=== PATIENT | male | born 1980 | race Two or more races ===

== ENCOUNTER 2019-03-15 17:40 | Emergency (ER) | payer MEDICAID, OTHER ==
[~2019-03-15] VITALS: Ht 190.5 cm; Wt 99.8 kg
[2019-03-15] MEDS ORDERED: IBUPROFEN 800 MG TAB PO ONE (20:30)
[2019-03-15 21:35] VITALS: BP 122/74
== END 2019-03-15 21:59 | disposition home or self-care (01) ==
LOC: ER 18:02
DX: M79.641 Pain in right hand (principal); M72.2 Plantar fascial fibromatosis; I10 Essential (primary) hypertension; X58.XXXA Exposure to other specified factors, initial encounter; Y93.89 Activity, other specified; Y99.8 Other external cause status; Y92.89 Other specified places as the place of occurrence of the external cause
CPT/HCPCS: 73130; 73630

== ENCOUNTER 2023-08-29 06:16 | Emergency (ER) | payer MEDICAID ==
[~2023-08-29] VITALS: Ht 190.5 cm; Wt 102.4 kg
[2023-08-29 07:48] VITALS: BP 143/89; PULSE 74; RESP 18; TEMP 97.6; O2SAT 98
[2023-08-29] MEDS: KETOROLAC TROMETH 60MG/2ML VIAL IM ONE (08:07)
[2023-08-29] MEDS ORDERED: BACL10TA PO (08:15)
[2023-08-29] MEDS ORDERED: IBUP-1456 PO (08:15)
== END 2023-08-29 08:23 | disposition home or self-care (01) ==
LOC: ER 06:16
DX: S46.002A Unspecified injury of muscle(s) and tendon(s) of the rotator cuff of left shoulder, initial encounter (principal); I10 Essential (primary) hypertension; W18.09XA Striking against other object with subsequent fall, initial encounter; Y93.89 Activity, other specified; Y92.89 Other specified places as the place of occurrence of the external cause; Y99.8 Other external cause status
CPT/HCPCS: 73030; 96372; 99283; J1885

== ENCOUNTER 2024-08-20 17:02 | Inpatient (IN) | payer MEDICAID, OTHER, SELFPAY ==
[~2024-08-20] VITALS: Ht 190.5 cm; Wt 111.5 kg
[~2024-08-20 17:02] MED LIST: BACL10TA PO; IBUP-1456 PO
--- NOTE | 2024-08-20 17:17 | ED.PDOC ---
HPI Comments 43 y/o obese M presents with c/o sudden onset of left-sided chest pain, that radiates to his right arm. Onset of symptoms at 11:00 a.m. this morning. Pain is constant. No alleviating or precipitating factors. Patient states States that he quit cigarette tobacco use 2 months ago. Denies any shortness of breath, nausea, vomiting, or other associated symptoms. This never happened before. Vitals: temperature: Past medical history: PNA Past surgical history: urethral procedure, carpal tunnel surgery HPI: Poor Historian. REVIEW OF SYSTEMS: CONSTITUTIONAL: Denies acute: fever, diaphoresis, chills, generalized weakness. HEAD: Denies acute: headache, photophobia Eyes: Denies acute: Double vision, vision loss, eye pain, eye discharge. EARS: Denies acute: tinnitus, hearing loss, ear discharge, ear pain, THROAT: Denies acute: sore throat, swelling, difficulty swallowing , pain with swallowing, change in voice. NECK: Denies acute: neck pain, neck swelling, stiff neck. HEART: Denies acute : palpitations, LUNGS: Denies acute: SOB, wheezing, cough, hemoptysis ABDOMEN: Denies acute: abdominal pain, Nausea, Vomiting, diarrhea, melena , hematemesis, hematochezia SKIN: Denies acute: rash, redness, lesions, itchiness. EXTREMITIES: Denies acute: calf pain, numbness, tingling, weakness, denies pain in extremity. Denies acute: Low back pain. Neuro: Denies acute: focal neurological deficit, motor or sensory focal neurological deficit, tremors, seizure like activity, confusion, dizziness, change in mental status, loss of bowel or bladder function, cauda equina like symptoms. : Denies acute: dysuria, hematuria, flank pain, increase in urinary frequency. PSYCH: Denies acute: hallucination, suicidal ideation, homicidal ideation. PHYSICAL EXAM: General: -----moderate to severe---acute distress, awake and alert. Head: normocephalic, atraumatic. Neck: supple, trachea is midline, no swelling. Throat: Normal phonation. Eyes:, no erythema, no purulent discharge, no proptosis, no icterus. Heart: regular tachycardic, no significant murmur appreciated. Lungs: no apparent respiratory distress, Able to speak in full sentences. No wheezing, no rhonchi, no crackles. No stridors Clear to auscultation bilaterally. Abdomen: non tender to palpation, non distended, soft, no guarding, no rebound, + bowel sounds. Neuro: Awake, Alert, oriented to name, self, situation, follows commands GCS=15. Speech is normal. Skin: no petechia, no purpura, no cyanosis, non-pale, not jaundice. Lower extremities: --no - Pitting edema no deformity, no focal swelling, no calf TTP. Makes eye contact. moves all four extremities. Face: no apparent facial droop. Ambulating in the ED independently. ED COURSE: Time Seen by MD: 17:00 Primary Care Provider: JANELLE Jose Notes: Nurses Notes, Medications, Allergies Allergies: Coded Allergies: NO KNOWN ALLERGIES (Unverified , 03/15/19) Home Meds Active Scripts Baclofen (Baclofen) 10 Mg Tab, 10 MG PO BID, #20 TAB Prov:TINO CORREA 08/29/23 Ibuprofen (Ibuprofen) 800 Mg Tab, 1 TAB PO TID, #30 TAB Prov:TINO CORREA 08/29/23 Information Source: Patient Mode of Arrival: Ambulatory Past Medical History PAST MEDICAL HISTORY: Anxiety, HTN Surgical History: Denies all surgeries Family History Family History: Reviewed,noncontributory to illness Social History Smoker: Non-Smoker Alcohol: Denies ETOH Use Drugs: Denies Drug Use Lives In: Home EKG EKG : Pulse Rate (adult): 106 [place]: Normal Cardiac Rhythm: ST Block: None Hypertrophy: None ST: Normal Was a procedure done? Was a procedure done?: No X-Ray, Labs, Meds, VS Vital Signs Date Time Temp Pulse Resp B/P (MAP) Pulse Ox O2 Delivery O2 Flow Rate FiO2 08/20/24 19:53 132/75 08/20/24 19:37 108 20 95 Room Air* 0 21 08/20/24 19:36 98.2 108 20 132/75 (94) 95 98.2 08/20/24 18:23 112/60 08/20/24 18:04 105 08/20/24 17:58 98.0 103 18 110/70 (83) 98 98.0 08/20/24 17:58 103 18 98 Room Air* 0 21 08/20/24 17:43 110/70 08/20/24 17:17 106 08/20/24 17:08 106 08/20/24 17:03 98.8 108 18 111/75 (87) 94 98.8 Lab Test 08/20/24 20:08 08/20/24 18:21 08/20/24 18:09 08/20/24 17:15 Range/Units Troponin I High Sensitivity Pending 8 10 </=54 ng/L Sodium Level 140 139 136-145 mmol/L Potassium Level 4.1 3.9 3.5-5.1 mmol/L Chloride Level 106 106 98-107 mmol/L Carbon Dioxide Level 21 23 20-31 mmol/L Anion Gap 13 10 5-15 Blood Urea Nitrogen 18 15 9-23 mg/dL Creatinine 1.55 H 1.54 H 0.700-1.30 mg/dL Glomerular Filtration Rate Calc 57 58 >90 mL/min BUN/Creatinine Ratio 11.6 9.7 L 10.0-20.0 Serum Glucose 109 H 109 H 74-106 mg/dL Calcium Level 10.2 10.2 8.7-10.4 mg/dL Urine Color Yellow Yellow Urine Clarity Clear Clear Urine pH 6.5 5.0-9.0 Urine Specific [place] 1.027 1.001-1.035 Urine Protein Trace H Negative Urine Ketones Negative Negative Urine Blood Negative Negative /uL Urine Nitrite Negative Negative Urine Bilirubin Negative Negative Urine Urobilinogen Normal Negative mg/dL Urine Leukocyte Esterase 1+ Negative /uL Urine RBC 3 0 - 3 /hpf Urine Microscopic WBC 21 H 0-3 /HPF Urine Squamous Epithelial Cells Few <5 /hpf Urine Bacteria None seen None Seen /hpf Urine Mucus Few None Seen Urine Glucose Normal Normal mg/dL Urine Opiates Screen Neg NEGATIVE Urine Fentanyl Screen Neg NEGATIVE Urine Barbiturates Screen Neg NEGATIVE Urine Phencyclidine Screen Neg NEGATIVE Urine Amphetamines Screen Neg NEGATIVE Urine Benzodiazepines Screen Neg NEGATIVE Urine Cocaine Screen Neg NEGATIVE Urine Cannabinoids Screen Neg NEGATIVE White Blood Count 16.4 H 4.4-10.8 10^3/uL Red Blood Count 5.54 4.5-5.90 10^6/uL Hemoglobin 17.6 H 13.5-17.5 g/dL Hematocrit 49.8 41.0-53.0 % Mean Corpuscular Volume 90.0 80.0-100.0 fL Mean Corpuscular Hemoglobin 31.7 28.0-32.0 pg Mean Corpuscular Hemoglobin Concent 35.2 32.0-36.0 g/dL Red Cell Distribution Width 13.1 11.8-14.3 % Platelet Count 207 140-450 10^3/uL Mean Platelet Volume 7.7 6.9-10.8 fL Neutrophils (%) (Auto) 73.4 37.0-80.0 % Lymphocytes (%) (Auto) 16.6 10.0-50.0 % Monocytes (%) (Auto) 7.6 0.0-12.0 % Eosinophils (%) (Auto) 1.7 0.0-7.0 % Basophils (%) (Auto) 0.7 0.0-2.0 % Neutrophils # (Auto) 12.1 H 1.6-8.6 10 ^3/uL Lymphocytes # (Auto) 2.7 0.4-5.4 10 ^3/uL Monocytes # (Auto) 1.3 0-1.3 10 ^3/uL Eosinophils # (Auto) 0.3 0-0.8 10 ^3/uL Basophils # (Auto) 0.1 0-0.2 10 ^3/uL Nucleated Red Blood Cells 0.2 % Erythrocyte Sedimentation Rate 1 0-20 mm/hr D-Dimer, Quantitative 0.24 0.0-0.49 mg/L FEU Lactic Acid Level 1.6 0.4-2.0 mmol/L Total Bilirubin 1.2 H 0.2-1.0 mg/dL Aspartate Amino Transferase (AST) 26 13-40 U/L Alanine Aminotransferase (ALT) 55 H 7-40 U/L Alkaline Phosphatase 74 46-116 U/L C-Reactive Protein High Sensitivity 0.25 <1.0 mg/dL B-Type Natriuretic Peptide 2.17 0-100 pg/mL Total Protein 7.6 5.7-8.2 g/dL Albumin 5.0 H 3.2-4.8 g/dL Current Medications Medications (Trade) Dose Ordered Sig/Adan Route Start Time Stop Time Status Last Admin Aspirin (Ecotrin Enteric Coated Tablet) 325 mg ONCE ONCE PO 08/20/24 17:15 08/20/24 17:16 DC 08/20/24 17:38 Sodium Chloride 1,000 ml @ 1,000 mls/hr Q1H ONCE IV 08/20/24 17:15 08/20/24 18:14 DC 08/20/24 17:44 Nitroglycerin (Ntrostat Sublingual) 0.4 mg ONCE ONCE SL 08/20/24 17:15 08/20/24 17:16 DC 08/20/24 17:43 Ceftriaxone Sodium 50 ml @ 100 mls/hr ONCE ONCE IV 08/20/24 18:00 08/20/24 18:29 DC 08/20/24 19:52 Fentanyl Citrate 100 mcg ONCE ONCE IV 08/20/24 19:30 08/20/24 19:31 DC 08/20/24 19:53 [place] [id number] Ph: [phone] DIAGNOSTIC IMAGING Diagnostic Imaging Report : [id number] Signed PATIENT: KAILYN ROSALES ACCT: [id number] UNIT: [id number] : 1980 LOC: ER ROOM / BED: / AGE / SEX: 43 / M ADM STATUS: REG ER SERVICE 1706 ORDERING PHYSICIAN: BEBETO LEHMAN DO PROCEDURE(s): CXRP - CHEST PORTABLE REASON: cp ORDER NUMBER(s): [id number], ACCESSION NUMBER(s): [id number] EXAMINATION: AP portable chest radiograph CLINICAL HISTORY: cp COMPARISON: None FINDINGS: No dominant consolidations. The costophrenic angles appear clear. No sizable pleural effusion or pneumothorax identified. The cardiomediastinal silhouette appears within normal limits given technique. IMPRESSION: No acute cardiopulmonary findings as visualized. ATED BY: CYRUS LEMUS MD DICTATED DATE/TIME: 08/20/241823 SIGNED BY: CYRUS LEMUS MD SIGNED DATE/TIME: 08/20/241823 CC: Time of 1ST Reevaluation: 17:00 Reevaluation 1ST: Unchanged Patient Education/Counseling: Diagnosis, Treatment Family Education/Counseling: No Family Present Departure 1 Departure Time of Disposition: 18:41 Impression: Primary Impression: Chest pain Additional Impression: Leukocytosis Disposition: 09 ADMITTED INPATIENT Admit to: Tele Condition: Guarded Discharged With: Self Critical Care Note Critical Care Time?: No Heart Score Heart Score: Heart Score Response (Comments) Value History Moderate Suspicious 1 EKG Normal 0 Age <45 0 Risk Factors 1 or 2 risk factors 1 Troponin Normal limit 0 Total 2 I personally scribed for BEBETO LEHMAN DO ([email or web address]) on 08/20/24 at 17:17. Electronically submitted by Mak Mast ([email or web address]). I personally scribed for BEBETO LEHMAN DO ([email or web address]) on 08/20/24 at 18:36. Electronically submitted by Mak Mast ([email or web address]). I personally scribed for BEBETO LEHMAN DO ([email or web address]) on 08/20/24 at 20:47. Electronically submitted by Mak Mast ([email or web address]). BEBETO LEHMAN DO Aug 20, 2024 17:17
[2024-08-20 17:34] LABS: Basophils # (auto) 0.1 10 ^3/uL (0-0.2); Basophils % (auto) 0.7 % (0.0-2.0); Eosinophils # (auto) 0.3 10 ^3/uL (0-0.8); Eosinophils % (auto) 1.7 % (0.0-7.0); Hematocrit 49.8 % (41.0-53.0); Hemoglobin 17.6 g/dL (13.5-17.5); Lymphocytes # (auto) 2.7 10 ^3/uL (0.4-5.4); Lymphocytes % (auto) 16.6 % (10.0-50.0); Mean Corpuscular Hemoglobin 31.7 pg (28.0-32.0); Mean Corpuscular Hgb Conc. 35.2 g/dL (32.0-36.0); Monocytes # (auto) 1.3 10 ^3/uL (0-1.3); Monocytes % (auto) 7.6 % (0.0-12.0); Neutrophils # (auto) 12.1 10 ^3/uL (1.6-8.6); Neutrophils % (auto) 73.4 % (37.0-80.0); Nucleated Red Blood Cells % 0.2 %; Platelet Count (auto) 207 10^3/uL (140-450); Red Blood Cells 5.54 10^6/uL (4.5-5.90); Red Cell Distribution Width 13.1 % (11.8-14.3); White Blood Cell 16.4 10^3/uL (4.4-10.8)
[2024-08-20] MEDS: ASPirin-EC 325mg tab PO ONE (17:38)
[2024-08-20] MEDS: NITROGLYCERIN 0.4 MG SL TAB SL ONE (17:43)
[2024-08-20] MEDS: SODIUM CHLORIDE 0.9% 1,000 ML IV ONE (17:44)
[2024-08-20 17:48] LABS: Alkaline Phosphatase 74 U/L (46-116); Anion Gap 10 (5-15); Aspartate Aminotransferase 26 U/L (13-40); BUN/Creatinine Ratio 9.7 (10.0-20.0); Blood Urea Nitrogen 15 mg/dL (9-23); Calcium 10.2 mg/dL (8.7-10.4); Carbon Dioxide 23 mmol/L (20-31); Chloride 106 mmol/L (98-107); Potassium 3.9 mmol/L (3.5-5.1); Sodium 139 mmol/L (136-145); Total Protein 7.6 g/dL (5.7-8.2)
[2024-08-20 17:49] LABS: Alanine Aminotransferase 55 U/L (7-40); Bilirubin, Total 1.2 mg/dL (0.2-1.0); Glucose 109 mg/dL (74-106)
[2024-08-20 17:58] VITALS: PULSE 103; RESP 18; O2SAT 98
--- NOTE | 2024-08-20 18:26 | DVH ---
EXAMINATION: AP portable chest radiograph CLINICAL HISTORY: cp COMPARISON: None FINDINGS: No dominant consolidations. The costophrenic angles appear clear. No sizable pleural effusion or pne umothorax identified. The cardiomediastinal silhouette appears within normal limits given technique. IMPRESSION: No acute cardiopulmonary findings as visualized.
[2024-08-20 18:58] LABS: Amphetamine Screen, Urine Neg (NEGATIVE); Barbiturate Scree,Urine Neg (NEGATIVE); Benzodiazephine Screen, Urine Neg (NEGATIVE); Cannabinoid Screen, Urine Neg (NEGATIVE); Cocaine Screen, Urine Neg (NEGATIVE); Opiate Scree,Urine Neg (NEGATIVE); Phencyclidine Screen, Urine Neg (NEGATIVE)
[2024-08-20 19:37] VITALS: PULSE 108; RESP 20; O2SAT 95
[2024-08-20] MEDS: IOHEXOL 350 MG/ML 100ML IJ ONE (19:51)
[2024-08-20] MEDS: cefTRIAXone 1GM/50ML D5W 50 ML IV ONE (19:52)
[2024-08-20] MEDS: fentaNYL CITRATE 100 MCG/2 ML VL IV ONE (19:53)
[2024-08-20 20:00] LABS: Urine Bacteria None Seen /hpf (None Seen)
[2024-08-20 20:02] LABS: Chloride 106 mmol/L (98-107); Potassium 4.1 mmol/L (3.5-5.1); Sodium 140 mmol/L (136-145)
[2024-08-20 20:03] LABS: Anion Gap 13 (5-15); Calcium 10.2 mg/dL (8.7-10.4); Carbon Dioxide 21 mmol/L (20-31)
[2024-08-20 20:08] LABS: BUN/Creatinine Ratio 11.6 (10.0-20.0); Blood Urea Nitrogen 18 mg/dL (9-23); Glucose 109 mg/dL (74-106)
[2024-08-20 20:15] LABS: Urine Blood Negative /uL (Negative); Urine Clarity Clear (Clear); Urine Color Yellow (Yellow); Urine Mucus FEW (None Seen); Urine Protein, UAD TRACE (Negative); Urine Specific Gravity 1.027 (1.001-1.035); Urine Squamous Epithelial Cell FEW /hpf (<5); Urine Urobilinogen Normal (Negative); Urine WBC 21 /HPF (0-3); Urine pH 6.5 (5.0-9.0)
[2024-08-20 20:26] LABS: Erythrocyte Sedimentation Rate 1 mm/hr (0-20)
--- NOTE | 2024-08-20 21:24 | DVHHP2 ---
Admitting Diagnosis: chest pain History of Present Illness 43 y/o obese M presents with c/o sudden onset of left-sided chest pain, that radiates to his right arm. Onset of symptoms at 11:00 a.m. this morning. Pain is constant. No alleviating or precipitating factors. Past medical history: PNA Past surgical history: urethral procedure, carpal tunnel surgery REVIEW OF SYSTEMS: CONSTITUTIONAL: Denies acute: fever, diaphoresis, chills, generalized weakness. HEAD: Denies acute: headache, photophobia Eyes: Denies acute: Double vision, vision loss, eye pain, eye discharge. EARS: Denies acute: tinnitus, hearing loss, ear discharge, ear pain, THROAT: Denies acute: sore throat, swelling, difficulty swallowing , pain with swallowing, change in voice. NECK: Denies acute: neck pain, neck swelling, stiff neck. HEART: Denies acute : palpitations, LUNGS: Denies acute: SOB, wheezing, cough, hemoptysis ABDOMEN: Denies acute: abdominal pain, Nausea, Vomiting, diarrhea, melena , hematemesis, hematochezia SKIN: Denies acute: rash, redness, lesions, itchiness. EXTREMITIES: Denies acute: calf pain, numbness, tingling, weakness, denies pain in extremity. Denies acute: Low back pain. Neuro: Denies acute: focal neurological deficit, motor or sensory focal neurological deficit, tremors, seizure like activity, confusion, dizziness, change in mental status, loss of bowel or bladder function, cauda equina like symptoms. : Denies acute: dysuria, hematuria, flank pain, increase in urinary frequency. PSYCH: Denies acute: hallucination, suicidal ideation, homicidal ideation. Allergies: Coded Allergies: NO KNOWN ALLERGIES (Unverified , 03/15/19) Home Meds Active Scripts Baclofen (Baclofen) 10 Mg Tab, 10 MG PO BID, #20 TAB Prov:TINO CORREA 08/29/23 Ibuprofen (Ibuprofen) 800 Mg Tab, 1 TAB PO TID, #30 TAB Prov:TINO CORREA 08/29/23 Vital Signs Vital Signs Date Time Temp Pulse Resp B/P (MAP) Pulse Ox O2 Delivery O2 Flow Rate FiO2 08/20/24 19:53 132/75 08/20/24 19:37 108 20 95 Room Air* 0 21 08/20/24 19:36 98.2 98.2 Physical Exam Generally-43 years old male, well nourished well developed. Mild distress HEENT-atraumatic normocephalic Heart-regular rate and rhythm Lungs decreased breath sounds bilaterally Abdomen soft nontender nondistended Musculoskeletal-no edema cyanosis Neuro-AO x3, no focal deficits Results Labs Test 08/20/24 20:08 08/20/24 18:21 08/20/24 18:09 08/20/24 17:15 Range/Units Sodium Level 140 136-145 mmol/L Potassium Level 4.1 3.5-5.1 mmol/L Chloride Level 106 98-107 mmol/L Carbon Dioxide Level 21 20-31 mmol/L Anion Gap 13 5-15 Blood Urea Nitrogen 18 9-23 mg/dL Creatinine 1.55 H 0.700-1.30 mg/dL Glomerular Filtration Rate Calc 57 >90 mL/min BUN/Creatinine Ratio 11.6 10.0-20.0 Serum Glucose 109 H 74-106 mg/dL Calcium Level 10.2 8.7-10.4 mg/dL Urine Color Yellow Yellow Urine Clarity Clear Clear Urine pH 6.5 5.0-9.0 Urine Specific [place] 1.027 1.001-1.035 Urine Protein Trace H Negative Urine Ketones Negative Negative Urine Blood Negative Negative /uL Urine Nitrite Negative Negative Urine Bilirubin Negative Negative Urine Urobilinogen Normal Negative mg/dL Urine Leukocyte Esterase 1+ Negative /uL Urine RBC 3 0 - 3 /hpf Urine Microscopic WBC 21 H 0-3 /HPF Urine Squamous Epithelial Cells Few <5 /hpf Urine Bacteria None seen None Seen /hpf Urine Mucus Few None Seen Urine Glucose Normal Normal mg/dL Urine Opiates Screen Neg NEGATIVE Urine Fentanyl Screen Neg NEGATIVE Urine Barbiturates Screen Neg NEGATIVE Urine Phencyclidine Screen Neg NEGATIVE Urine Amphetamines Screen Neg NEGATIVE Urine Benzodiazepines Screen Neg NEGATIVE Urine Cocaine Screen Neg NEGATIVE Urine Cannabinoids Screen Neg NEGATIVE White Blood Count 16.4 H 4.4-10.8 10^3/uL Red Blood Count 5.54 4.5-5.90 10^6/uL Hemoglobin 17.6 H 13.5-17.5 g/dL Hematocrit 49.8 41.0-53.0 % Mean Corpuscular Volume 90.0 80.0-100.0 fL Mean Corpuscular Hemoglobin 31.7 28.0-32.0 pg Mean Corpuscular Hemoglobin Concent 35.2 32.0-36.0 g/dL Red Cell Distribution Width 13.1 11.8-14.3 % Platelet Count 207 140-450 10^3/uL Mean Platelet Volume 7.7 6.9-10.8 fL Neutrophils (%) (Auto) 73.4 37.0-80.0 % Lymphocytes (%) (Auto) 16.6 10.0-50.0 % Monocytes (%) (Auto) 7.6 0.0-12.0 % Eosinophils (%) (Auto) 1.7 0.0-7.0 % Basophils (%) (Auto) 0.7 0.0-2.0 % Neutrophils # (Auto) 12.1 H 1.6-8.6 10 ^3/uL Lymphocytes # (Auto) 2.7 0.4-5.4 10 ^3/uL Monocytes # (Auto) 1.3 0-1.3 10 ^3/uL Eosinophils # (Auto) 0.3 0-0.8 10 ^3/uL Basophils # (Auto) 0.1 0-0.2 10 ^3/uL Nucleated Red Blood Cells 0.2 % Erythrocyte Sedimentation Rate 1 0-20 mm/hr D-Dimer, Quantitative 0.24 0.0-0.49 mg/L FEU Lactic Acid Level 1.6 0.4-2.0 mmol/L Total Bilirubin 1.2 H 0.2-1.0 mg/dL Aspartate Amino Transferase (AST) 26 13-40 U/L Alanine Aminotransferase (ALT) 55 H 7-40 U/L Alkaline Phosphatase 74 46-116 U/L C-Reactive Protein High Sensitivity 0.25 <1.0 mg/dL B-Type Natriuretic Peptide 2.17 0-100 pg/mL Total Protein 7.6 5.7-8.2 g/dL Albumin 5.0 H 3.2-4.8 g/dL Primary Diagnosis Chest pain rule out ACS Plan Chest pain persistent intermittent Troponin negative x3 EKG shows no significant ST segment changes Check echo of the heart Cardiology consult CTA chest to rule out PE ordered in ED. D-dimer negative If positive, start heparin ggt for PE Ceftriaxone 1 g for UTI Check urine culture Urine sodium, urine creatinine Can you ultrasound for JOEL Full code cardiac diet Lovenox for DVT prophylaxis No GI prophylaxis needed Plan discussed with: Patient Problems List: (1) UTI (urinary tract infection) (2) Chest pain Status: Acute (3) Leukocytosis Status: Acute (4) JOEL (acute kidney injury) Date of Service: Aug 20, 2024 Billing Provider: MICHELLE BROWN MD Common Visit Codes: [id number] INP/OBS CARE (MOD) MICHELLE BROWN MD Aug 20, 2024 21:24
[2024-08-20] MEDS ORDERED: DOCUSATE SOD 100 MG CAP PO PRN (21:30)
[2024-08-20] MEDS ORDERED: ONDANSETRON HCL 4 MG/2 ML VIAL IV PRN (21:30)
[2024-08-20] MEDS ORDERED: ACETAMINOPHEN 325 MG TAB PO PRN (21:30)
[2024-08-20] MEDS: LACTATED RINGER'S 1,000 ML IV ONE (21:32)
[2024-08-20] MEDS: SODIUM CHLOR 0.9% PF (SALINE LOCK) 10ML VIAL/SYR IV SCH (22:02)
--- NOTE | 2024-08-20 22:05 | DVH ---
INDICATION: JOEL rule out obstruction TECHNIQUE: Multiple real-time sonographic images of the kidneys and bladder were obtained. COMPARISON: None FINDINGS: RIGHT kidney measures 10.9 cm in length. No hydronephrosis. 2.0 x 1.6 x 2.0 anechoic cystic structure within the right superior pole consisten t with benign cyst. LEFT kidney measures 9.7 cm in length. No hydronephrosis. No large intraluminal masses are seen in the bladder. Post void residual not evaluated. IMPRESSION: 1. Unremarkable examination. Right renal cyst noted.
[2024-08-20] MEDS: BACLOFEN 10 MG TAB PO SCH (22:11)
[2024-08-20 22:30] VITALS: BP 108/84; PULSE 99; RESP 18; TEMP 97.9; O2SAT 96
--- NOTE | 2024-08-20 22:30 | DVH ---
Procedure: CT CT ANGIO CHEST CONTRAST Reason for study/Clinical History: cp Comparison Study: None available at time of dictation. Exam Date: 08/20/2024 07:40 PM Radiation Dose Information: CT Dose: CTDI volume is 27.39 mGy. Dose-length product is 1148.11 mGy*cm Contrast: Type of contrast: Omnipaque 350 Contrast inject: Amount not given Contrast wasted:0 TECHNIQUE: After the uneventful administration of intravenous contrast intravenously, CT imaging was performed through the chest. Coronal and sagittal reformations were performed by the technologist. FINDINGS: Lower Neck: Visualized portions of the thyroid gland are unremarkable. Aorta and Vasculature: Normal caliber of thoracic aorta. Lymph Nodes: No enlarged intrathoracic lymph nodes. Mediastinum: Heart size is normal. There is no pericardial effusion. The esophagus is unremarkable. Lungs: No focal consolidation, pleural effusion or significant pneumothorax. No suspicious pulmonary nodule or mass. Musculoskeletal: No acute osseous abnormality. Upper abdomen: Limited portions of the upper abdomen are unremarkable. IMPRESSION: 1. No evidence of acute intrathoracic abnormality identified. 2. No findings of pulmonary artery hypertension. HS:Y All CT scans at this medical facility are performed using dose modulation techniques as appropriate t o a performed exam including the following: Automated exposure control was utilized; adjustment of th e MA and/or KV according to patient size; and use of iterative reconstruction technique.
[2024-08-20 22:55] VITALS: BP 108/84; PULSE 96; RESP 18; TEMP 97.9; O2SAT 99
[2024-08-20] MEDS: HYDROcodone-ACET 5/325MG TAB PO PRN (23:48)
[2024-08-21] VITALS (8 sets, daily range): BP systolic 104–121; BP diastolic 66–84; PULSE 71–92; RESP 16–18; TEMP 97.7–98.6; O2SAT 97–98
[2024-08-21] MEDS: PANTOPRAZOLE 40 MG TAB PO ONE (05:30)
[2024-08-21] MEDS: NITROGLYCERIN 0.4 MG SL TAB SL PRN (07:41)
[2024-08-21] MEDS: MORPHINE SULFATE INJ 2 MG/ml SYRG IV PRN (07:45)
--- NOTE | 2024-08-21 09:13 | ECG ---
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
--- NOTE | 2024-08-21 09:55 | DVHPN2 ---
Subjective Continues to complain of chest pain Reviewed: Care Plan, H&P, Labs, Medications, Previous Orders, Radiology, Other (Consultation) Changes from previous H/P or p: No Changes Objective Vitals Vital Signs Date Time Temp Pulse Resp B/P (MAP) Pulse Ox O2 Delivery O2 Flow Rate FiO2 08/21/24 07:45 80 18 123/77 08/21/24 05:00 97.9 97 97.9 08/20/24 22:55 Nasal Cannula* 2 28 Intake/Output Intake and Output 08/21/24 07:00 Intake Total 1850 ml Output Total 920 ml Balance 930 ml Intake Oral 800 ml IV Total 1050 ml Output Urine Total 920 ml General Appearance: Alert, Oriented X3, Cooperative, mild distress HEENT: Atraumatic Lungs: Clear to auscultation, Normal air movement Cardiovascular: Regular rate, Normal S1, Normal S2, No murmurs Abdomen: Normal bowel sounds, Soft, No tenderness Neuro: Normal speech, Cranial nerves 3-12 NL Psych/Mental Status: Mental status NL, Mood NL Medications Current Medications Medications Dose Ordered Sig/Adan Route Start Time Stop Time Status Last Admin Dose Admin Sodium Chloride 10 ml Q8HR IV 08/20/24 22:00 08/21/24 05:32 10 ML Docusate Sodium 100 mg BIDPRN PRN PO 08/20/24 21:30 Acetaminophen 650 mg Q6HP PRN PO 08/20/24 21:30 Acetaminophen/ Hydrocodone Bitart 1 tab Q4HP PRN PO 08/20/24 21:30 08/20/24 23:48 1 TAB Ondansetron HCl 4 mg Q4HP PRN IV 08/20/24 21:30 Enoxaparin Sodium 40 mg DAILY SC 08/21/24 10:00 Nitroglycerin 0.4 mg Q5MINP PRN SL 08/20/24 21:30 08/21/24 07:41 0.4 MG Morphine Sulfate 2 mg Q30M PRN IV 08/20/24 21:30 08/21/24 07:45 2 MG Ceftriaxone Sodium 50 ml @ 100 mls/hr DAILY IV 08/21/24 10:00 Baclofen 10 mg BID PO 08/20/24 22:00 08/20/24 22:11 10 MG Pantoprazole Sodium 40 mg DAILY PO 08/22/24 10:00 Laboratory Results Laboratory Tests 08/20/24 17:15 08/20/24 18:21 Chemistry Test 08/20/24 17:15 08/20/24 18:21 Albumin 5.0 g/dL (3.2-4.8) H Calcium Level 10.2 mg/dL (8.7-10.4) 10.2 mg/dL (8.7-10.4) Total Protein 7.6 g/dL (5.7-8.2) Coagulation Test 08/20/24 17:15 D-Dimer, Quantitative 0.24 mg/L FEU (0.0-0.49) Cardiac Markers Test 08/20/24 17:15 B-Type Natriuretic Peptide 2.17 pg/mL (0-100) LFT Test 08/20/24 17:15 Alanine Aminotransferase (ALT) 55 U/L (7-40) H Alkaline Phosphatase 74 U/L (46-116) Aspartate Amino Transferase (AST) 26 U/L (13-40) Total Bilirubin 1.2 mg/dL (0.2-1.0) H Urinalysis Test 08/20/24 18:09 Urine Color Yellow (Yellow) Urine Clarity Clear (Clear) Urine pH 6.5 (5.0-9.0) Urine Specific [place] 1.027 (1.001-1.035) Urine Protein Trace (Negative) H Urine Ketones Negative (Negative) Urine Blood Negative /uL (Negative) Urine Nitrite Negative (Negative) Urine Bilirubin Negative (Negative) Urine Urobilinogen Normal mg/dL (Negative) Urine Leukocyte Esterase 1+ /uL (Negative) Urine RBC 3 /hpf (0 - 3) Urine Microscopic WBC 21 /HPF (0-3) H Urine Squamous Epithelial Cells Few /hpf (<5) Urine Bacteria None seen /hpf (None Seen) Urine Mucus Few (None Seen) Urine Glucose Normal mg/dL (Normal) Microbiology Microbiology Date/Time Source Procedure Growth Status 08/20/24 18:09 Voided Urine Urine Culture - Preliminary Resulted Labs and/or images reviewed: Labs reviewed by me, Image(s) reviewed by me Assessment/Plan Assessment/Plan A 43-year-old male patient; with past medical history of obstructive sleep apnea on CPAP; ex-smoker; who presented to emergency department with chest pain. Chest pain; to rule out ACS Acute hypoxic respiratory failure; unclear etiology Obstructive sleep apnea on CPAP Sepsis with leukocytosis and fever due to suspected pericarditis/suspected UTI JOEL; most likely vasomotor nephropathy in the setting of sepsis Right renal cyst; no active issues Ex-smoker Obesity Reviewed lab work including urinalysis Pending cultures Reviewed the imaging studies including chest angiogram and renal ultrasound Continue IV antibiotic Continue oxygen therapy as indicated Cardiology is following: Stress test planned for tomorrow Continue monitoring August 21, 2024 Echocardiogram: MILD LVH AND MILD LV DIASTOLIC DYSFUNCTION LV EF IS 65% MODERATELY DILATED RV NORMAL VALVES NO EFFUSION Goals of care discussed with the patient for 20 minutes; full code Late Entry. This medical document was created using an electronic medical record system with computerized dictation system. Although this document has been carefully reviewed, there might still be some phonetic and typographical errors. These areas are purely typographical due to imperfections of the software programs, and do not reflect any compromise in the patient's medical care. Plan discussed with: Patient, Other (Nurse) Date of Service: Aug 21, 2024 Billing Provider: ROBERT LUCERO MD Common Visit Codes: [id number] INP/OBS CARE(HIGH) Secondary Visit Codes: [id number] CARE PLAN 30 MINUTES (20 minutes) ROBERT LUCERO MD Aug 21, 2024 09:55
[2024-08-21] MEDS: ENOXAPARIN SOD 40 MG/0.4 ML SYRINGE SC SCH (10:00)
--- NOTE | 2024-08-21 10:53 | ECG ---
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
[2024-08-21] MEDS: cefTRIAXone 1GM/50ML D5W 50 ML IV SCH (10:56)
[2024-08-21] MEDS: ASPirin 81 mg TAB PO ONE (10:56)
[2024-08-21 11:13] LABS: Basophils # (auto) 0 10 ^3/uL (0-0.2); Basophils % (auto) 0.3 % (0.0-2.0); Eosinophils # (auto) 0.3 10 ^3/uL (0-0.8); Eosinophils % (auto) 2.6 % (0.0-7.0); Hemoglobin 15.5 g/dL (13.5-17.5); Lymphocytes # (auto) 2.7 10 ^3/uL (0.4-5.4); Lymphocytes % (auto) 27.7 % (10.0-50.0); Mean Corpuscular Hemoglobin 31.7 pg (28.0-32.0); Mean Corpuscular Hgb Conc. 35.2 g/dL (32.0-36.0); Monocytes # (auto) 0.9 10 ^3/uL (0-1.3); Monocytes % (auto) 9.5 % (0.0-12.0); Neutrophils # (auto) 5.8 10 ^3/uL (1.6-8.6); Neutrophils % (auto) 59.9 % (37.0-80.0); Platelet Count (auto) 189 10^3/uL (140-450); Red Blood Cells 4.89 10^6/uL (4.5-5.90); Red Cell Distribution Width 13.1 % (11.8-14.3); White Blood Cell 9.7 10^3/uL (4.4-10.8)
[2024-08-21 11:18] LABS: Magnesium 2.2 mg/dL (1.6-2.6)
[2024-08-21 11:22] LABS: Albumin 4.3 g/dL (3.2-4.8); Alkaline Phosphatase 65 U/L (46-116); Anion Gap 10 (5-15); Aspartate Aminotransferase 16 U/L (13-40); BUN/Creatinine Ratio 10.6 (10.0-20.0); Blood Urea Nitrogen 15 mg/dL (9-23); Calcium 9.6 mg/dL (8.7-10.4); Carbon Dioxide 25 mmol/L (20-31); Chloride 105 mmol/L (98-107); Potassium 3.8 mmol/L (3.5-5.1); Sodium 140 mmol/L (136-145); Total Protein 6.3 g/dL (5.7-8.2)
[2024-08-21 11:25] LABS: Alanine Aminotransferase 42 U/L (7-40); Bilirubin, Total 1.5 mg/dL (0.2-1.0); Glucose 117 mg/dL (74-106)
--- NOTE | 2024-08-21 11:40 | DVHINCON2 ---
Date Seen: Aug 21, 2024 Referring Physician MD Victor Manuel Reason for Consultation Chest pain History of Present Illness This is a 43-year-old male patient who presents to emergency room with chief complaint of chest pain. The patient reports that the chest pain began at approximately 11:00 a.m. yesterday while he was sleeping. He describes the pain as unprovoked, intermittent, pressure-like in nature, substernal with radiation down his right arm. The patient mentions that the pain is worse when he lies flat and feels better when he sits up. He also mentions worsening pain upon deep inhalation. Initial twelve lead electrocardiogram reveals sinus tachycardia. Initial troponin level of 10ng/L with down trend thereafter. Significant past medical history includes obstructive sleep apnea with CPAP use, pneumonia, GERD, tobacco use and obesity. The patient mentions seeing a computer information science professor in the past for reasons that he is unsure of. He states that he underwent a treadmill stress test approximately three years ago and was told that everything was fine. Of note, the patient mentions that during this admission he has received sublingual nitroglycerin and morphine IV, both of which do not relieve his chest pain. Past Medical History Past medical history reviewed. No other significant than mentioned above. Past Surgical History Carpal tunnel surgery Urethral procedure Family History: Patient reports no known family medical history. Family History Family history reviewed. Social History Patient has a 10 pack-year history, quit smoking two months ago Denies any illicit drug use Denies any alcohol use Allergies: Coded Allergies: NO KNOWN ALLERGIES (Unverified , 03/15/19) Home Meds Active Scripts Baclofen (Baclofen) 10 Mg Tab, 10 MG PO BID, #20 TAB Prov:TINO CORREA 08/29/23 Ibuprofen (Ibuprofen) 800 Mg Tab, 1 TAB PO TID, #30 TAB Prov:TINO CORREA 08/29/23 Home Meds Home medications reviewed. Current Medications Current Medications Medications (Trade) Dose Ordered Sig/Adan Route PRN Reason Start Time Stop Time Status Last Admin Sodium Chloride (Saline Lock Ns) 10 ml Q8HR IV 08/20/24 22:00 08/21/24 05:32 Docusate Sodium (Colace Capsule) 100 mg BIDPRN PRN PO FOR CONSTIPATION 08/20/24 21:30 Acetaminophen (Tylenol Tablet) 650 mg Q6HP PRN PO PAIN SCALE 1-3 OR TEMP>100.4 08/20/24 21:30 Acetaminophen/ Hydrocodone Bitart ([place] 5/325MG Tab) 1 tab Q4HP PRN PO MODERATE PAIN (4-6 PAIN SCALE) 08/20/24 21:30 08/20/24 23:48 Ondansetron HCl (Zofran) 4 mg Q4HP PRN IV NAUSEA / VOMITING 08/20/24 21:30 Enoxaparin Sodium (Lovenox) 40 mg DAILY SC 08/21/24 10:00 Nitroglycerin (Ntrostat Sublingual) 0.4 mg Q5MINP PRN SL FOR CHEST PAIN 08/20/24 21:30 08/21/24 07:41 Morphine Sulfate 2 mg Q30M PRN IV FOR CHEST PAIN 08/20/24 21:30 08/21/24 11:01 Ceftriaxone Sodium 50 ml @ 100 mls/hr DAILY IV 08/21/24 10:00 08/21/24 10:56 Baclofen (Liorisal Tablet) 10 mg BID PO 08/20/24 22:00 08/21/24 10:55 Pantoprazole Sodium (Protonix Tablet) 40 mg DAILY PO 08/22/24 10:00 Review of Systems Constitutional: No symptom reported Ears, Nose, & Throat: No symptom reported Eyes: No symptom reported Neurological: No symptoms reported Pulmonary/Respiratory: No symptoms reported Cardiovascular: Chest pain Gastrointestinal: No symptom reported Genitourinary: No symptom reported Musculoskeletal: No symptom reported Skin: No symptom reported Psychiatric: No symptom reported Endocrine: No symptom reported Hematologic/Lymphatic: No symptom reported Vital Signs Vital Signs Date Time Temp Pulse Resp B/P (MAP) Pulse Ox O2 Delivery O2 Flow Rate FiO2 08/21/24 11:01 92 17 119/86 08/21/24 09:00 98.4 97 98.4 08/20/24 22:55 Nasal Cannula* 2 28 Physical Exam General Appearance: Cooperative. Obese Pulmonary/Respiratory: Clear, bilateral breaths sounds. Cardiovascular/Chest: Regular rate and rhythm. Peripheral Pulses: 2+ Radial (R). 2+ Radial (L). 2+ Pedal (R). 2+ Pedal (L) Abdominal Exam: Normal bowel sounds. Ankle Exam: Negative ankle edema Lower extremities: Negative lower extremity edema Neuro/Mental Status: A/OX4, coherent. Thoughts/Psych: Normal thought pattern. Appropriate mood and affect. Good judgment and insight. Appearance: No acute distress. Skin Exam: Normal inspection. Normal color. Warm and dry. Labs/Diagnostic Data Labs Test 08/21/24 10:20 08/20/24 20:08 08/20/24 18:09 08/20/24 17:15 Range/Units White Blood Count 9.7 # 4.4-10.8 10^3/uL Red Blood Count 4.89 4.5-5.90 10^6/uL Hemoglobin 15.5 13.5-17.5 g/dL Hematocrit 44.0 # 41.0-53.0 % Mean Corpuscular Volume 90.0 80.0-100.0 fL Mean Corpuscular Hemoglobin 31.7 28.0-32.0 pg Mean Corpuscular Hemoglobin Concent 35.2 32.0-36.0 g/dL Red Cell Distribution Width 13.1 11.8-14.3 % Platelet Count 189 140-450 10^3/uL Mean Platelet Volume 7.7 6.9-10.8 fL Neutrophils (%) (Auto) 59.9 37.0-80.0 % Lymphocytes (%) (Auto) 27.7 10.0-50.0 % Monocytes (%) (Auto) 9.5 0.0-12.0 % Eosinophils (%) (Auto) 2.6 0.0-7.0 % Basophils (%) (Auto) 0.3 0.0-2.0 % Neutrophils # (Auto) 5.8 1.6-8.6 10 ^3/uL Lymphocytes # (Auto) 2.7 0.4-5.4 10 ^3/uL Monocytes # (Auto) 0.9 0-1.3 10 ^3/uL Eosinophils # (Auto) 0.3 0-0.8 10 ^3/uL Basophils # (Auto) 0 0-0.2 10 ^3/uL Nucleated Red Blood Cells 0.0 % Sodium Level 140 136-145 mmol/L Potassium Level 3.8 3.5-5.1 mmol/L Chloride Level 105 98-107 mmol/L Carbon Dioxide Level 25 20-31 mmol/L Anion Gap 10 5-15 Blood Urea Nitrogen 15 9-23 mg/dL Creatinine 1.41 H 0.700-1.30 mg/dL Glomerular Filtration Rate Calc 64 >90 mL/min BUN/Creatinine Ratio 10.6 10.0-20.0 Serum Glucose 117 H 74-106 mg/dL Hemoglobin A1c 4.9 <5.7 % A1C Calcium Level 9.6 8.7-10.4 mg/dL Magnesium Level 2.2 1.6-2.6 mg/dL Total Bilirubin 1.5 H 0.2-1.0 mg/dL Aspartate Amino Transferase (AST) 16 13-40 U/L Alanine Aminotransferase (ALT) 42 H 7-40 U/L Alkaline Phosphatase 65 46-116 U/L Total Protein 6.3 5.7-8.2 g/dL Albumin 4.3 3.2-4.8 g/dL Triglycerides Level 146 < 150 mg/dL Cholesterol Level 136 < 200 mg/dL LDL Cholesterol 79 < 100 mg/dL HDL Cholesterol 30 L 40-59 mg/dL Thyroid Stimulating Hormone (TSH) 2.22 0.55-4.78 uIU/mL Troponin I High Sensitivity 8 </=54 ng/L Urine Color Yellow Yellow Urine Clarity Clear Clear Urine pH 6.5 5.0-9.0 Urine Specific [place] 1.027 1.001-1.035 Urine Protein Trace H Negative Urine Ketones Negative Negative Urine Blood Negative Negative /uL Urine Nitrite Negative Negative Urine Bilirubin Negative Negative Urine Urobilinogen Normal Negative mg/dL Urine Leukocyte Esterase 1+ Negative /uL Urine RBC 3 0 - 3 /hpf Urine Microscopic WBC 21 H 0-3 /HPF Urine Squamous Epithelial Cells Few <5 /hpf Urine Bacteria None seen None Seen /hpf Urine Mucus Few None Seen Urine Glucose Normal Normal mg/dL Urine Opiates Screen Neg NEGATIVE Urine Fentanyl Screen Neg NEGATIVE Urine Barbiturates Screen Neg NEGATIVE Urine Phencyclidine Screen Neg NEGATIVE Urine Amphetamines Screen Neg NEGATIVE Urine Benzodiazepines Screen Neg NEGATIVE Urine Cocaine Screen Neg NEGATIVE Urine Cannabinoids Screen Neg NEGATIVE Erythrocyte Sedimentation Rate 1 0-20 mm/hr D-Dimer, Quantitative 0.24 0.0-0.49 mg/L FEU Lactic Acid Level 1.6 0.4-2.0 mmol/L C-Reactive Protein High Sensitivity 0.25 <1.0 mg/dL B-Type Natriuretic Peptide 2.17 0-100 pg/mL Microbiology Date/Time Source Procedure Growth Status 08/20/24 18:09 Voided Urine Urine Culture - Preliminary Resulted Assessment Chest pain, rule out coronary ischemia ?Pericarditis Rule out structural heart disease Obstructive sleep apnea with CPAP use History of pneumonia Acute kidney injury GERD History of tobacco use Obesity Plan/Recommendation We will continue with the following plan/recommendations (Dr. Lemus): Patient seen and examined at bedside with . We will proceed with obtaining a transthoracic echocardiogram to evaluate cardiac function. Patient presentation likely in keeping with pericarditis. We will initiate the patient on pericarditis treatment plan with colchicine 0.6 mg orally daily for three months, ibuprofen 600 mg orally every 8 hours for 1-2 weeks then decrease dose by 200-400 mg every 1-2 weeks, and pantoprazole 40 mg orally once daily while on NSAID treatment. Dr. Lemus also recommend for the patient undergo nuclear stress test. Plan discussed with the patient and the patient was agreeable. We will schedule the patient on 08/14/2024 at soonest availability. Thank you for allowing us to care for this patient. Please call with any questions or con cerns. Critical care time spent: 44 minutes This medical document was created using an electronic medical record system with voice recognition software and computerized dictation system. Although this document has been carefully reviewed, there might still be some phonetic and typographical errors. Occasional wrong-word or ``sound-alike substitutions may have occurred due to the inherent limitations of voice recognition software. These areas are purely typographical due to imperfections of the software programs and do not reflect any compromise in the patient's medical care. Please read the chart carefully and recognize, using context, where these substitutions have occurred. Plan discussed with: Patient NYHA Physical activity limitations: NA Date of Service: Aug 21, 2024 Billing Provider: ANISH HERNANDEZ Cardiology Common Codes: 30087-TCHDBXY INP/OBS CARE (High) Cardiology Consultation Codes: 63977-[id number] CONSULT <45MIN ANISH HERNANDEZ Aug 21, 2024 11:40
[2024-08-21] MEDS: KETOROLAC TROMETH 30 MG/ML 1ML VIAL IV ONE (14:06)
--- NOTE | 2024-08-21 14:42 | DVHSR ---
APPROVED REPORT EXAM: LIMITED Two-dimensional and M-mode echocardiogram with Doppler and color Doppler. Blood Pressure: 123/77 mmHg INDICATION Chest Pain RISK FACTORS Obesity: Height: 6' 3", Weight: 243 DIMENSIONS LVDd4.8 (3.8-5.7cm)LA (2D)3.6 (1.9-4.0cm)Aortic Root3.6 (2.0-3.7cm) LVDs3.5 (2.5-4.0cm)LA (MM) (1.9-4.0cm)Aortic Cusp Exc2.2 (1.5-2.0cm) EF (%) 55.0 (55-70%)Rt. Atrium4.0 (1.9-4.0cm)Asc. Aorta cm IVSd1.0 (0.7-1.1cm)RV (D) (1.8-2.4cm) PWd0.9 (0.7-1.1cm) Mitral Valve MitralMitral Stenosis E wave0.50m/sMV Mean GR.mmHg A wave0.60m/sMV Peak GR.mmHg E/A ratio0.82D MVAcm2 Aortic Valve Aortic ValveAortic Stenosis LVOT Diameter2.6 (1.8-2.4cm)Doppler AVAcm2 Pulmonic Valve V20.60m/s Other Information Quality : Technically LimitedRhythm : Technically limited study due to body habitus and patient position, patient holding breath and shaki ng due to pain. Conclusion MILD LVH AND MILD LV DIASTOLIC DYSFUNCTION LV EF IS 65% MODERATELY DILATED RV NORMAL VALVES NO EFFUSION
[2024-08-21] MEDS: IBUPROFEN 600 MG TAB PO SCH (22:11)
--- NOTE | 2024-08-21 22:56 | DVHINCON2 ---
Date Seen: Aug 21, 2024 Referring Physician MD Victor Manuel Reason for Consultation Chest pain History of Present Illness This is a 43-year-old male with past medical history of obstructive sleep apnea with CPAP use, pneumonia, GERD, tobacco use and obesity who presents to emergency room with a complaint of chest pain. The patient reports that the chest pain began at approximately 11:00 a.m. yesterday while he was sleeping. He describes the pain as unprovoked, intermittent, pressure-like in nature, substernal with radiation down his right arm. The patient mentions that the pain is worse when he lies flat and feels better when he sits up. He also mentions worsening pain upon deep inhalation. Initial twelve lead electrocardiogram reveals sinus tachycardia. Initial troponin level of 10ng/L with down trend thereafter. Chest x-ray showed NAD. The patient mentions seeing a lavender farm worker in the past for reasons that he is unsure of. He states that he underwent a treadmill stress test approximately three years ago and was told that everything was fine. Of note, the patient mentions that during this admission he has received sublingual nitroglycerin and morphine IV, both of which do not relieve his chest pain. Patient was admitted to the hospital. I am asked to consult on this patient. Past Medical History Past medical history reviewed. No other significant than mentioned above. Past Surgical History Carpal tunnel surgery Urethral procedure Family History: Patient reports no known family medical history. Allergies: Coded Allergies: NO KNOWN ALLERGIES (Unverified , 03/15/19) Home Meds Active Scripts Baclofen (Baclofen) 10 Mg Tab, 10 MG PO BID, #20 TAB Prov:TINO CORREA 08/29/23 Ibuprofen (Ibuprofen) 800 Mg Tab, 1 TAB PO TID, #30 TAB Prov:TINO CORREA 08/29/23 Current Medications Current Medications Medications (Trade) Dose Ordered Sig/Adan Route PRN Reason Start Time Stop Time Status Last Admin Sodium Chloride (Saline Lock Ns) 10 ml Q8HR IV 08/20/24 22:00 08/21/24 13:46 Docusate Sodium (Colace Capsule) 100 mg BIDPRN PRN PO FOR CONSTIPATION 08/20/24 21:30 Acetaminophen (Tylenol Tablet) 650 mg Q6HP PRN PO PAIN SCALE 1-3 OR TEMP>100.4 08/20/24 21:30 Acetaminophen/ Hydrocodone Bitart ([place] 5/325MG Tab) 1 tab Q4HP PRN PO MODERATE PAIN (4-6 PAIN SCALE) 08/20/24 21:30 08/20/24 23:48 Ondansetron HCl (Zofran) 4 mg Q4HP PRN IV NAUSEA / VOMITING 08/20/24 21:30 Enoxaparin Sodium (Lovenox) 40 mg DAILY SC 08/21/24 10:00 Nitroglycerin (Ntrostat Sublingual) 0.4 mg Q5MINP PRN SL FOR CHEST PAIN 08/20/24 21:30 08/21/24 07:41 Morphine Sulfate 2 mg Q30M PRN IV FOR CHEST PAIN 08/20/24 21:30 08/21/24 11:01 Ceftriaxone Sodium 50 ml @ 100 mls/hr DAILY IV 08/21/24 10:00 08/21/24 10:56 Baclofen (Liorisal Tablet) 10 mg BID PO 08/20/24 22:00 08/21/24 10:55 Pantoprazole Sodium (Protonix Tablet) 40 mg DAILY PO 08/22/24 10:00 Colchicine (Colcrys) 0.6 mg DAILY PO 08/22/24 10:00 UNV Ibuprofen (Motrin Tablet) 600 mg TID PO 08/21/24 22:00 UNV Pantoprazole Sodium (Protonix Tablet) 40 mg DAILY@0600 PO 08/22/24 06:00 UNV Review of Systems Constitutional: No symptom reported Ears, Nose, & Throat: No symptom reported Eyes: No symptom reported Neurological: No symptoms reported Pulmonary/Respiratory: No symptoms reported Cardiovascular: Chest pain Gastrointestinal: No symptom reported Genitourinary: No symptom reported Musculoskeletal: No symptom reported Skin: No symptom reported Psychiatric: No symptom reported Endocrine: No symptom reported Hematologic/Lymphatic: No symptom reported Vital Signs Vital Signs Date Time Temp Pulse Resp B/P (MAP) Pulse Ox O2 Delivery O2 Flow Rate FiO2 08/21/24 13:00 98.6 92 18 114/75 (88) 97 98.6 08/21/24 08:00 Nasal Cannula* 2 28 Physical Exam GENERAL: Alert and oriented x 3. No acute distress. Obese. EYES: PERRL, EOMI. Anicteric. HENT: Moist mucous membranes. LUNGS: Clear to auscultation bilaterally. CARDIOVASCULAR: Regular rate and rhythm. ABDOMEN: Soft, nontender and nondistended. EXTREMITIES: No edema. NEUROLOGIC: No focal neurological deficits. SKIN: Warm, dry. Labs/Diagnostic Data Labs Test 08/21/24 10:20 08/20/24 20:08 08/20/24 18:09 08/20/24 17:15 Range/Units White Blood Count 9.7 # 4.4-10.8 10^3/uL Red Blood Count 4.89 4.5-5.90 10^6/uL Hemoglobin 15.5 13.5-17.5 g/dL Hematocrit 44.0 # 41.0-53.0 % Mean Corpuscular Volume 90.0 80.0-100.0 fL Mean Corpuscular Hemoglobin 31.7 28.0-32.0 pg Mean Corpuscular Hemoglobin Concent 35.2 32.0-36.0 g/dL Red Cell Distribution Width 13.1 11.8-14.3 % Platelet Count 189 140-450 10^3/uL Mean Platelet Volume 7.7 6.9-10.8 fL Neutrophils (%) (Auto) 59.9 37.0-80.0 % Lymphocytes (%) (Auto) 27.7 10.0-50.0 % Monocytes (%) (Auto) 9.5 0.0-12.0 % Eosinophils (%) (Auto) 2.6 0.0-7.0 % Basophils (%) (Auto) 0.3 0.0-2.0 % Neutrophils # (Auto) 5.8 1.6-8.6 10 ^3/uL Lymphocytes # (Auto) 2.7 0.4-5.4 10 ^3/uL Monocytes # (Auto) 0.9 0-1.3 10 ^3/uL Eosinophils # (Auto) 0.3 0-0.8 10 ^3/uL Basophils # (Auto) 0 0-0.2 10 ^3/uL Nucleated Red Blood Cells 0.0 % Sodium Level 140 136-145 mmol/L Potassium Level 3.8 3.5-5.1 mmol/L Chloride Level 105 98-107 mmol/L Carbon Dioxide Level 25 20-31 mmol/L Anion Gap 10 5-15 Blood Urea Nitrogen 15 9-23 mg/dL Creatinine 1.41 H 0.700-1.30 mg/dL Glomerular Filtration Rate Calc 64 >90 mL/min BUN/Creatinine Ratio 10.6 10.0-20.0 Serum Glucose 117 H 74-106 mg/dL Hemoglobin A1c 4.9 <5.7 % A1C Calcium Level 9.6 8.7-10.4 mg/dL Magnesium Level 2.2 1.6-2.6 mg/dL Total Bilirubin 1.5 H 0.2-1.0 mg/dL Aspartate Amino Transferase (AST) 16 13-40 U/L Alanine Aminotransferase (ALT) 42 H 7-40 U/L Alkaline Phosphatase 65 46-116 U/L Total Protein 6.3 5.7-8.2 g/dL Albumin 4.3 3.2-4.8 g/dL Triglycerides Level 146 < 150 mg/dL Cholesterol Level 136 < 200 mg/dL LDL Cholesterol 79 < 100 mg/dL HDL Cholesterol 30 L 40-59 mg/dL Thyroid Stimulating Hormone (TSH) 2.22 0.55-4.78 uIU/mL Troponin I High Sensitivity 8 </=54 ng/L Urine Color Yellow Yellow Urine Clarity Clear Clear Urine pH 6.5 5.0-9.0 Urine Specific [place] 1.027 1.001-1.035 Urine Protein Trace H Negative Urine Ketones Negative Negative Urine Blood Negative Negative /uL Urine Nitrite Negative Negative Urine Bilirubin Negative Negative Urine Urobilinogen Normal Negative mg/dL Urine Leukocyte Esterase 1+ Negative /uL Urine RBC 3 0 - 3 /hpf Urine Microscopic WBC 21 H 0-3 /HPF Urine Squamous Epithelial Cells Few <5 /hpf Urine Bacteria None seen None Seen /hpf Urine Mucus Few None Seen Urine Glucose Normal Normal mg/dL Urine Opiates Screen Neg NEGATIVE Urine Fentanyl Screen Neg NEGATIVE Urine Barbiturates Screen Neg NEGATIVE Urine Phencyclidine Screen Neg NEGATIVE Urine Amphetamines Screen Neg NEGATIVE Urine Benzodiazepines Screen Neg NEGATIVE Urine Cocaine Screen Neg NEGATIVE Urine Cannabinoids Screen Neg NEGATIVE Erythrocyte Sedimentation Rate 1 0-20 mm/hr D-Dimer, Quantitative 0.24 0.0-0.49 mg/L FEU Lactic Acid Level 1.6 0.4-2.0 mmol/L C-Reactive Protein High Sensitivity 0.25 <1.0 mg/dL B-Type Natriuretic Peptide 2.17 0-100 pg/mL Microbiology Date/Time Source Procedure Growth Status 08/20/24 18:09 Voided Urine Urine Culture - Preliminary Resulted Assessment Chest pain, rule out coronary ischemia. ?Pericarditis. Rule out structural heart disease. Obstructive sleep apnea with CPAP use. History of pneumonia. Acute kidney injury. GERD. History of tobacco use. Obesity. Plan/Recommendation I agree with your ongoing assessment and care of plan. Patient has been seen by Christine Live NP on my behalf, her and I discussed the plan with the patient. We will proceed with obtaining a transthoracic echocardiogram to evaluate cardiac function. Patient presentation likely in keeping with pericarditis. We will initiate the patient on pericarditis treatment plan with colchicine 0.6 mg orally daily for three months, ibuprofen 600 mg orally every 8 hours for 1-2 weeks then decrease dose by 200-400 mg every 1-2 weeks, and pantoprazole 40 mg orally once daily while on NSAID treatment. Nuclear stress test. Plan discussed with the patient and the patient was agreeable. We will schedule the patient on 08/14/2024 at soonest availability. Additional plan as per the hospital course. Plan discussed with: Patient NYHA Physical activity limitations: NA Date of Service: Aug 21, 2024 Billing Provider: JACQUIE SORTO MD Cardiology Common Codes: 25532-QGVBWFG INP/OBS CARE (High) Cardiology Consultation Codes: 96266-[id number] CONSULT <45MIN JACQUIE SORTO MD Aug 21, 2024 15:13
[2024-08-22] VITALS (7 sets, daily range): BP systolic 108–130; BP diastolic 74–81; PULSE 75–91; RESP 17–19; TEMP 97.8–98.7; O2SAT 95–98
[2024-08-22] MEDS: COLCHICINE 0.6 MG CAP PO SCH (04:29)
[2024-08-22] MEDS: PANTOPRAZOLE 40 MG TAB PO SCH (06:00)
[2024-08-22 07:46] LABS: Basophils # (auto) 0 10 ^3/uL (0-0.2); Basophils % (auto) 0.3 % (0.0-2.0); Eosinophils # (auto) 0.3 10 ^3/uL (0-0.8); Eosinophils % (auto) 3.1 % (0.0-7.0); Hematocrit 46.6 % (41.0-53.0); Hemoglobin 16.1 g/dL (13.5-17.5); Lymphocytes # (auto) 2.3 10 ^3/uL (0.4-5.4); Lymphocytes % (auto) 22.3 % (10.0-50.0); Mean Corpuscular Hemoglobin 31.4 pg (28.0-32.0); Mean Corpuscular Hgb Conc. 34.6 g/dL (32.0-36.0); Mean Corpuscular Volume 90.9 fL (80.0-100.0); Monocytes # (auto) 0.9 10 ^3/uL (0-1.3); Monocytes % (auto) 8.4 % (0.0-12.0); Neutrophils # (auto) 6.9 10 ^3/uL (1.6-8.6); Neutrophils % (auto) 65.9 % (37.0-80.0); Nucleated Red Blood Cells % 0.2 %; Platelet Count (auto) 195 10^3/uL (140-450); Red Blood Cells 5.12 10^6/uL (4.5-5.90); White Blood Cell 10.5 10^3/uL (4.4-10.8)
[2024-08-22 08:08] LABS: Alkaline Phosphatase 63 U/L (46-116); Anion Gap 11 (5-15); BUN/Creatinine Ratio 13.7 (10.0-20.0); Blood Urea Nitrogen 18 mg/dL (9-23); Calcium 9.4 mg/dL (8.7-10.4); Carbon Dioxide 24 mmol/L (20-31); Chloride 105 mmol/L (98-107); Glucose 87 mg/dL (74-106); Potassium 4.5 mmol/L (3.5-5.1); Sodium 140 mmol/L (136-145); Total Protein 6.5 g/dL (5.7-8.2)
[2024-08-22 08:09] LABS: Albumin 4.4 g/dL (3.2-4.8); Aspartate Aminotransferase 24 U/L (13-40)
[2024-08-22 08:15] LABS: Alanine Aminotransferase 44 U/L (7-40)
[2024-08-22] MEDS ORDERED: PANTOPRAZOLE 40 MG TAB PO SCH (10:00)
--- NOTE | 2024-08-22 10:49 | ECG ---
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
[2024-08-22] MEDS: REGADENOSON 0.4 MG/5 ML SYRG IV ONE ×2 (11:01→11:11)
--- NOTE | 2024-08-22 11:55 | ECG ---
[facility] Test Date: 2024-08-20 Test Time: 17:08:52 Pat Name: KAILYN ROSALES Department: ER Room: 0284T Gender: M Phytopathologist: AMBREEN : 1980 Requested By: BEBETO LEHMAN Order Number: [id number] Reading MD: Anish Armando Measurements Intervals [place] Rate: 106 P: 75 [place]: 145 QRS: 86 QRSD: 83 T: 54 QT: 302 QTc: 401 Interpretive Statements Sinus tachycardia Borderline ST elevation, inferior leads Electronically Signed On 08-24-2024 17:05:56 PDT by Anish Armando Please click the below link to view image of tracing.
--- NOTE | 2024-08-22 11:55 | ECG ---
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
--- NOTE | 2024-08-22 16:22 | DVHPN2 ---
Subjective Continues to complain of chest pain Reviewed: Care Plan, H&P, Labs, Medications, Previous Orders, Radiology, Other (Consultation) Changes from previous H/P or p: No Changes Objective Vitals Vital Signs Date Time Temp Pulse Resp B/P (MAP) Pulse Ox O2 Delivery O2 Flow Rate FiO2 08/22/24 12:46 97.8 84 18 118/79 (92) 95 97.8 08/22/24 08:05 Nasal Cannula* 2 28 Intake/Output Intake and Output 08/22/24 07:00 Intake Total 850 ml Output Total 1200 ml Balance -350 ml Intake Oral 800 ml IV Total 50 ml Output Urine Total 1200 ml General Appearance: Alert, Oriented X3, Cooperative, mild distress HEENT: Atraumatic Lungs: Clear to auscultation, Normal air movement Cardiovascular: Regular rate, Normal S1, Normal S2, No murmurs Abdomen: Normal bowel sounds, Soft, No tenderness Neuro: Normal speech, Cranial nerves 3-12 NL Psych/Mental Status: Mental status NL, Mood NL Medications Current Medications Medications Dose Ordered Sig/Adan Route Start Time Stop Time Status Last Admin Dose Admin Sodium Chloride 10 ml Q8HR IV 08/20/24 22:00 08/22/24 14:07 10 ML Docusate Sodium 100 mg BIDPRN PRN PO 08/20/24 21:30 Acetaminophen 650 mg Q6HP PRN PO 08/20/24 21:30 Acetaminophen/ Hydrocodone Bitart 1 tab Q4HP PRN PO 08/20/24 21:30 08/22/24 14:07 1 TAB Ondansetron HCl 4 mg Q4HP PRN IV 08/20/24 21:30 Enoxaparin Sodium 40 mg DAILY SC 08/21/24 10:00 Nitroglycerin 0.4 mg Q5MINP PRN SL 08/20/24 21:30 08/21/24 07:41 0.4 MG Morphine Sulfate 2 mg Q30M PRN IV 08/20/24 21:30 08/21/24 11:01 2 MG Ceftriaxone Sodium 50 ml @ 100 mls/hr DAILY IV 08/21/24 10:00 08/21/24 10:56 100 MLS/HR Baclofen 10 mg BID PO 08/20/24 22:00 08/21/24 22:11 10 MG Colchicine 0.6 mg DAILY PO 08/22/24 10:00 08/22/24 04:29 0.6 MG Ibuprofen 600 mg TID PO 08/21/24 22:00 08/22/24 14:07 600 MG Pantoprazole Sodium 40 mg DAILY@0600 PO 08/22/24 06:00 Laboratory Results Laboratory Tests 08/22/24 06:43 Chemistry Test 08/22/24 06:43 Albumin 4.4 g/dL (3.2-4.8) Calcium Level 9.4 mg/dL (8.7-10.4) Total Protein 6.5 g/dL (5.7-8.2) LFT Test 08/22/24 06:43 Alanine Aminotransferase (ALT) 44 U/L (7-40) H Alkaline Phosphatase 63 U/L (46-116) Aspartate Amino Transferase (AST) 24 U/L (13-40) Total Bilirubin 1.0 mg/dL (0.2-1.0) Urinalysis Test 08/20/24 18:09 Urine Color Yellow (Yellow) Urine Clarity Clear (Clear) Urine pH 6.5 (5.0-9.0) Urine Specific [place] 1.027 (1.001-1.035) Urine Protein Trace (Negative) H Urine Ketones Negative (Negative) Urine Blood Negative /uL (Negative) Urine Nitrite Negative (Negative) Urine Bilirubin Negative (Negative) Urine Urobilinogen Normal mg/dL (Negative) Urine Leukocyte Esterase 1+ /uL (Negative) Urine RBC 3 /hpf (0 - 3) Urine Microscopic WBC 21 /HPF (0-3) H Urine Squamous Epithelial Cells Few /hpf (<5) Urine Bacteria None seen /hpf (None Seen) Urine Mucus Few (None Seen) Urine Glucose Normal mg/dL (Normal) Microbiology Microbiology Date/Time Source Procedure Growth Status 08/20/24 18:21 Blood Blood Culture - Preliminary NO GROWTH AFTER 24 HOURS OF INCUBATION. Resulted 08/20/24 18:09 Voided Urine Urine Culture - Preliminary Resulted Labs and/or images reviewed: Labs reviewed by me, Image(s) reviewed by me Assessment/Plan Assessment/Plan A 43-year-old male patient; with past medical history of obstructive sleep apnea on CPAP; ex-smoker; who presented to emergency department with chest pain. Chest pain; ACS ruled out; most likely due to pericarditis Acute hypoxic respiratory failure; unclear etiology; PE was ruled out by chest angiogram and normal D-dimer Obstructive sleep apnea on CPAP Sepsis with leukocytosis and fever due to suspected pericarditis/suspected UTI JOEL; most likely vasomotor nephropathy in the setting of sepsis Right renal cyst; no active issues Ex-smoker Obesity Reviewed lab work including urinalysis Pending cultures Reviewed the imaging studies including chest angiogram and renal ultrasound Continue IV antibiotic Continue oxygen therapy as indicated Avoid nephrotoxic agents Cardiology is following: Most likely pericarditis; to continue colchicine and ibuprofen Continue pain management as indicated Reviewed echocardiogram Reviewed EKGs and troponin levels Continue monitoring August 21, 2024 Echocardiogram: MILD LVH AND MILD LV DIASTOLIC DYSFUNCTION LV EF IS 65% MODERATELY DILATED RV NORMAL VALVES NO EFFUSION Late Entry. This medical document was created using an electronic medical record system with computerized dictation system. Although this document has been carefully reviewed, there might still be some phonetic and typographical errors. These areas are purely typographical due to imperfections of the software programs, and do not reflect any compromise in the patient's medical care. Plan discussed with: Patient, Other (Nurse) My Orders Orders - ROBERT LUCERO MD Procedure Category Date Status Time Cardiac DIET 08/22/24 Transmitted Diet-2gna,Lofat,Lochol Lunch Complete Blood Count LAB 08/23/24 Verified 04:00 Basic Metabolic Panel LAB 08/23/24 Verified 04:00 Date of Service: Aug 22, 2024 Billing Provider: ROBERT LUCERO MD Common Visit Codes: [id number] INP/OBS CARE(HIGH) ROBERT LUCERO MD Aug 22, 2024 16:22
--- NOTE | 2024-08-22 23:12 | DVHPN2 ---
Progress Note - Dictate Date Seen: Aug 22, 2024 Medical Necessity Reason Pt with a Central, PICC or Fol: No Subjective Patient was seen and evaluated in follow up. Patient is on 2 LPM NC. Echocardiogram shows an EF of 65%. Patient is undergoing stress test today. CBC is unremarkable. Troponin remains negative. Telemetry reviewed. vital signs Vital Sign Date Time Temp Pulse Resp B/P (MAP) Pulse Ox O2 Delivery O2 Flow Rate FiO2 08/22/24 21:44 98.1 08/22/24 21:07 89 18 119/77 (91) 98 08/22/24 08:05 Nasal Cannula* 2 28 Total Intake and Output 08/21/24 08/21/24 08/22/24 15:00 23:00 07:00 Intake Total 530 ml 320 ml Output Total 600 ml 600 ml Balance 530 ml -600 ml -280 ml medications Current Medications Medications Dose Ordered Sig/Adan Route Start Time Stop Time Status Last Admin Dose Admin Sodium Chloride 10 ml Q8HR IV 08/20/24 22:00 08/22/24 21:46 10 ML Docusate Sodium 100 mg BIDPRN PRN PO 08/20/24 21:30 Acetaminophen 650 mg Q6HP PRN PO 08/20/24 21:30 Acetaminophen/ Hydrocodone Bitart 1 tab Q4HP PRN PO 08/20/24 21:30 08/22/24 18:52 1 TAB Ondansetron HCl 4 mg Q4HP PRN IV 08/20/24 21:30 Enoxaparin Sodium 40 mg DAILY SC 08/21/24 10:00 Nitroglycerin 0.4 mg Q5MINP PRN SL 08/20/24 21:30 08/21/24 07:41 0.4 MG Morphine Sulfate 2 mg Q30M PRN IV 08/20/24 21:30 08/21/24 11:01 2 MG Ceftriaxone Sodium 50 ml @ 100 mls/hr DAILY IV 08/21/24 10:00 08/21/24 10:56 100 MLS/HR Baclofen 10 mg BID PO 08/20/24 22:00 08/22/24 21:45 10 MG Colchicine 0.6 mg DAILY PO 08/22/24 10:00 08/22/24 04:29 0.6 MG Ibuprofen 600 mg TID PO 08/21/24 22:00 08/22/24 21:44 600 MG Pantoprazole Sodium 40 mg DAILY@0600 PO 08/22/24 06:00 objective GENERAL: Alert and oriented x 3. No acute distress. Obese. EYES: PERRL, EOMI. Anicteric. HENT: Moist mucous membranes. LUNGS: Clear to auscultation bilaterally. CARDIOVASCULAR: Regular rate and rhythm. ABDOMEN: Soft, nontender and nondistended. EXTREMITIES: No edema. NEUROLOGIC: No focal neurological deficits. SKIN: Warm, dry. laboratory and microbiology Laboratory Tests 08/22/24 06:43 Test 08/22/24 06:43 Range/Units Serum Glucose 87 74-106 mg/dL Problem List Chest pain, rule out coronary ischemia. ?Pericarditis. Rule out structural heart disease. Obstructive sleep apnea with CPAP use. History of pneumonia. Acute kidney injury. GERD. History of tobacco use. Obesity. Assessment/Plan Continued all current supportive medical care. Nuclear stress test. Morphine and [place] for pain management. IV antibiotics as ordered. DVT and GI prophylactics. Nitro SL. Additional plan as per the hospital course. Plan discussed with: Patient JACQUIE SORTO MD Aug 22, 2024 23:12
[2024-08-23] VITALS (8 sets, daily range): BP systolic 102–114; BP diastolic 65–76; PULSE 65–90; RESP 17–19; TEMP 97.3–97.9; O2SAT 96–100
[2024-08-23 06:54] LABS: Anion Gap 11 (5-15); Calcium 9.5 mg/dL (8.7-10.4); Potassium 4.5 mmol/L (3.5-5.1); Sodium 138 mmol/L (136-145)
[2024-08-23 07:00] LABS: BUN/Creatinine Ratio 11.2 (10.0-20.0); Blood Urea Nitrogen 15 mg/dL (9-23); Glucose 87 mg/dL (74-106)
[2024-08-23 07:03] LABS: Carbon Dioxide 19 mmol/L (20-31); Chloride 108 mmol/L (98-107)
[2024-08-23 07:07] LABS: Basophils # (auto) 0 10 ^3/uL (0-0.2); Basophils % (auto) 0.4 % (0.0-2.0); Eosinophils # (auto) 0.4 10 ^3/uL (0-0.8); Eosinophils % (auto) 4.7 % (0.0-7.0); Hematocrit 45.4 % (41.0-53.0); Hemoglobin 15.8 g/dL (13.5-17.5); Lymphocytes # (auto) 2.6 10 ^3/uL (0.4-5.4); Lymphocytes % (auto) 30.5 % (10.0-50.0); Mean Corpuscular Hemoglobin 32.1 pg (28.0-32.0); Mean Corpuscular Hgb Conc. 34.8 g/dL (32.0-36.0); Mean Corpuscular Volume 92.2 fL (80.0-100.0); Monocytes # (auto) 0.7 10 ^3/uL (0-1.3); Monocytes % (auto) 8.4 % (0.0-12.0); Neutrophils # (auto) 4.8 10 ^3/uL (1.6-8.6); Nucleated Red Blood Cells % 0.1 %; Platelet Count (auto) 189 10^3/uL (140-450); Red Blood Cells 4.92 10^6/uL (4.5-5.90); Red Cell Distribution Width 12.7 % (11.8-14.3); White Blood Cell 8.5 10^3/uL (4.4-10.8)
--- NOTE | 2024-08-23 08:14 | DVHSR ---
APPROVED REPORT Exam: Nuclear Stress Test Indication: Chest pain Stress Tech: Caren Murillo Ht: 6 ft 3 in Wt: 243 lbs BSA: 2.38 m2 HR: 77 bpm BP: 119/80 mmHg BMI: 30.36 Rhythm: NSR Medical History Medical History: CHUCKY, GERD, Obesity, Smoker, EF 65% Allergies: No known drug allergies Stress Test Details Stress Test: Pharmacologic stress testing performed using 0.4 mg of regadenoson per 5 mL given IV ov er 10 seconds. Reason for pharmacologic stress test: Chest Pain. HR Resting HR: 77 bpmMax Heart Rate (APMHR): 179.151532 bpm Max HR Achieved: 144 bpmTarget HR (85% APMHR): 152.036755 bpm % of APMHR: 80.45 Recovery HR: 98 bpm BP Resting BP: 119/80 mmHg Recovery BP: 146/78 mmHg ECG Resting ECG: NSR Clinical Reason for Termination: Completed protocol Nurse Comments Uneventful stress test performed per protocol. Patient tolerated well and all vitals stable when allison sfered back to Nuclear Medicine via wheel chair by MEY Bond. Stress ECG Conclusion lvef 62% no severe ischemia noted NM EXAM: Myocardial Perfusion REST/STRESS Imaging Protocol: Rest Tc-99m/Stress Tc-99m 1 day Resting Data Rest SPECT myocardial perfusion imaging was performed in supine position 45 minutes following the int ravenous injection of 10.9 mCi of Tc-99m Sestamibi. Time of rest injection: 1015 Time of rest imagin Administration Route: IV Administration Site: Right AC Pharmacologic Stress Pharmacologic stress test was performed by injecting Regadenoson 0.4 mg IV push followed by the intra venous injection of 30.8 mCi of Tc-99m Sestamibi. Time of stress injection: 1200 Time of stress imagin Administration Route: IV Administration Site: Right AC Gated Stress SPECT was performed 90 minutes after stress injection. The images were gated to evaluate regional wall motion and calculate left ventricular ejection fracti on. Nuclear Conclusion Nuclear Findings: negative for ischemia lvef 62% no severe ischemia noted
--- NOTE | 2024-08-23 10:32 | DVHPN2 ---
Subjective Decreasing chest pain Reviewed: Care Plan, H&P, Labs, Medications, Previous Orders, Radiology, Other (Consultation) Changes from previous H/P or p: Changes Objective Vitals Vital Signs Date Time Temp Pulse Resp B/P (MAP) Pulse Ox O2 Delivery O2 Flow Rate FiO2 08/23/24 08:19 97.7 65 19 114/74 (87) 99 97.7 08/23/24 07:35 Nasal Cannula* 2 28 Intake/Output Intake and Output 08/23/24 07:00 Intake Total 1700 ml Output Total 1400 ml Balance 300 ml Intake Oral 1700 ml Output Urine Total 1400 ml General Appearance: Alert, Oriented X3, Cooperative, No acute distress HEENT: Atraumatic Lungs: Clear to auscultation, Normal air movement Cardiovascular: Regular rate, Normal S1, Normal S2, No murmurs Abdomen: Normal bowel sounds, Soft, No tenderness Neuro: Normal speech, Cranial nerves 3-12 NL Psych/Mental Status: Mental status NL, Mood NL Medications Current Medications Medications Dose Ordered Sig/Adan Route Start Time Stop Time Status Last Admin Dose Admin Sodium Chloride 10 ml Q8HR IV 08/20/24 22:00 08/23/24 05:34 10 ML Docusate Sodium 100 mg BIDPRN PRN PO 08/20/24 21:30 Acetaminophen 650 mg Q6HP PRN PO 08/20/24 21:30 Acetaminophen/ Hydrocodone Bitart 1 tab Q4HP PRN PO 08/20/24 21:30 08/23/24 06:54 1 TAB Ondansetron HCl 4 mg Q4HP PRN IV 08/20/24 21:30 Enoxaparin Sodium 40 mg DAILY SC 08/21/24 10:00 Nitroglycerin 0.4 mg Q5MINP PRN SL 08/20/24 21:30 08/21/24 07:41 0.4 MG Morphine Sulfate 2 mg Q30M PRN IV 08/20/24 21:30 08/21/24 11:01 2 MG Ceftriaxone Sodium 50 ml @ 100 mls/hr DAILY IV 08/21/24 10:00 08/21/24 10:56 100 MLS/HR Baclofen 10 mg BID PO 08/20/24 22:00 08/22/24 21:45 10 MG Colchicine 0.6 mg DAILY PO 08/22/24 10:00 08/22/24 04:29 0.6 MG Ibuprofen 600 mg TID PO 08/21/24 22:00 08/23/24 05:31 600 MG Pantoprazole Sodium 40 mg DAILY@0600 PO 08/22/24 06:00 08/23/24 05:32 40 MG Laboratory Results Laboratory Tests 08/23/24 05:45 Chemistry Test 08/23/24 05:45 Calcium Level 9.5 mg/dL (8.7-10.4) Urinalysis Test 08/20/24 18:09 Urine Color Yellow (Yellow) Urine Clarity Clear (Clear) Urine pH 6.5 (5.0-9.0) Urine Specific [place] 1.027 (1.001-1.035) Urine Protein Trace (Negative) H Urine Ketones Negative (Negative) Urine Blood Negative /uL (Negative) Urine Nitrite Negative (Negative) Urine Bilirubin Negative (Negative) Urine Urobilinogen Normal mg/dL (Negative) Urine Leukocyte Esterase 1+ /uL (Negative) Urine RBC 3 /hpf (0 - 3) Urine Microscopic WBC 21 /HPF (0-3) H Urine Squamous Epithelial Cells Few /hpf (<5) Urine Bacteria None seen /hpf (None Seen) Urine Mucus Few (None Seen) Urine Glucose Normal mg/dL (Normal) Microbiology Microbiology Date/Time Source Procedure Growth Status 08/20/24 18:21 Blood Blood Culture - Preliminary NO GROWTH AFTER 48 HOURS OF INCUBATION. Resulted 08/20/24 18:09 Voided Urine Urine Culture - Preliminary Resulted Labs and/or images reviewed: Labs reviewed by me, Image(s) reviewed by me Assessment/Plan Assessment/Plan A 43-year-old male patient; with past medical history of obstructive sleep apnea on CPAP; ex-smoker; who presented to emergency department with chest pain. Chest pain; ACS ruled out; most likely due to pericarditis Acute hypoxic respiratory failure; unclear etiology; PE was ruled out by chest angiogram and normal D-dimer Obstructive sleep apnea on CPAP Sepsis with leukocytosis and fever due to suspected pericarditis/suspected UTI JOEL; most likely vasomotor nephropathy in the setting of sepsis Right renal cyst; no active issues Ex-smoker Obesity Reviewed lab work including urinalysis Reviewed cultures Reviewed the imaging studies including chest angiogram and renal ultrasound Continue IV antibiotics while inpatient Wean off oxygen therapy as tolerated Avoid nephrotoxic agents Cardiology is following: Most likely pericarditis; to continue colchicine and ibuprofen Continue pain management as indicated Reviewed echocardiogram Reviewed EKGs and troponin levels Continue monitoring August 21, 2024 Echocardiogram: MILD LVH AND MILD LV DIASTOLIC DYSFUNCTION LV EF IS 65% MODERATELY DILATED RV NORMAL VALVES NO EFFUSION Late Entry. This medical document was created using an electronic medical record system with computerized dictation system. Although this document has been carefully reviewed, there might still be some phonetic and typographical errors. These areas are purely typographical due to imperfections of the software programs, and do not reflect any compromise in the patient's medical care. Plan discussed with: Patient, Spouse, Other (Nurse) My Orders Orders - ROBERT LUCERO MD Procedure Category Date Status Time Cardiac DIET 08/22/24 Transmitted Diet-2gna,Lofat,Lochol Lunch Date of Service: Aug 23, 2024 Billing Provider: ROBERT LUCERO MD Common Visit Codes: [id number] INP/OBS CARE(HIGH) ROBERT LUCERO MD Aug 23, 2024 10:32
--- NOTE | 2024-08-23 23:28 | DVHPN2 ---
Progress Note - Dictate Date Seen: Aug 23, 2024 Medical Necessity Reason Pt with a Central, PICC or Fol: No Subjective Patient was seen and evaluated in follow up. Patient is on 2 LPM NC. Patient reports chest pain is improving. CBC is unremarkable. CO2 19, Plant Chief 1.35. Telemetry reviewed. vital signs Vital Sign Date Time Temp Pulse Resp B/P (MAP) Pulse Ox O2 Delivery O2 Flow Rate FiO2 08/23/24 21:00 97.9 77 17 104/65 (78) 97 97.9 08/23/24 20:00 Nasal Cannula* 2 28 Total Intake and Output 08/22/24 08/22/24 08/23/24 15:00 23:00 07:00 Intake Total 800 ml 900 ml Output Total 1000 ml 400 ml Balance -200 ml 500 ml medications Current Medications Medications Dose Ordered Sig/Adan Route Start Time Stop Time Status Last Admin Dose Admin Sodium Chloride 10 ml Q8HR IV 08/20/24 22:00 08/23/24 21:35 10 ML Docusate Sodium 100 mg BIDPRN PRN PO 08/20/24 21:30 Acetaminophen 650 mg Q6HP PRN PO 08/20/24 21:30 Acetaminophen/ Hydrocodone Bitart 1 tab Q4HP PRN PO 08/20/24 21:30 08/23/24 10:56 1 TAB Ondansetron HCl 4 mg Q4HP PRN IV 08/20/24 21:30 Enoxaparin Sodium 40 mg DAILY SC 08/21/24 10:00 08/23/24 10:38 40 MG Nitroglycerin 0.4 mg Q5MINP PRN SL 08/20/24 21:30 08/21/24 07:41 0.4 MG Morphine Sulfate 2 mg Q30M PRN IV 08/20/24 21:30 08/21/24 11:01 2 MG Ceftriaxone Sodium 50 ml @ 100 mls/hr DAILY IV 08/21/24 10:00 08/23/24 10:37 100 MLS/HR Baclofen 10 mg BID PO 08/20/24 22:00 08/23/24 21:34 10 MG Colchicine 0.6 mg DAILY PO 08/22/24 10:00 08/23/24 10:37 0.6 MG Ibuprofen 600 mg TID PO 08/21/24 22:00 08/23/24 21:34 600 MG Pantoprazole Sodium 40 mg DAILY@0600 PO 08/22/24 06:00 08/23/24 05:32 40 MG objective GENERAL: Alert and oriented x 3. No acute distress. Obese. EYES: PERRL, EOMI. Anicteric. HENT: Moist mucous membranes. LUNGS: Clear to auscultation bilaterally. CARDIOVASCULAR: Regular rate and rhythm. ABDOMEN: Soft, nontender and nondistended. EXTREMITIES: No edema. NEUROLOGIC: No focal neurological deficits. SKIN: Warm, dry. laboratory and microbiology Laboratory Tests 08/23/24 05:45 Test 08/23/24 05:45 Range/Units Serum Glucose 87 74-106 mg/dL Problem List Chest pain, rule out coronary ischemia. ?Pericarditis. Rule out structural heart disease. Obstructive sleep apnea with CPAP use. History of pneumonia. Acute kidney injury. GERD. History of tobacco use. Obesity. Assessment/Plan Continued all current supportive medical care. Nuclear stress test. Morphine and [place] for pain management. IV antibiotics as ordered. DVT and GI prophylactics. Nitro SL. Additional plan as per the hospital course. Dietary Evaluation Review Comments: 1) Refer to CDE on DC for weight management 2) Continue current POC Expected Outcomes/Goals: To meet >75% estimated needs Fu 3-5 days Plan discussed with: Patient JACQUIE SORTO MD Aug 23, 2024 23:28
[2024-08-24 00:57] VITALS: BP 99/67; PULSE 79; RESP 17; TEMP 97.5; O2SAT 98
[2024-08-24 05:00] VITALS: BP 113/72; PULSE 76; RESP 17; TEMP 97.6; O2SAT 97
[2024-08-24 07:57] LABS: Alanine Aminotransferase 33 U/L (7-40); Albumin 4.6 g/dL (3.2-4.8); Alkaline Phosphatase 62 U/L (46-116); Anion Gap 10 (5-15); Aspartate Aminotransferase 18 U/L (13-40); BUN/Creatinine Ratio 11.8 (10.0-20.0); Blood Urea Nitrogen 15 mg/dL (9-23); Calcium 10.1 mg/dL (8.7-10.4); Carbon Dioxide 22 mmol/L (20-31); Glucose 94 mg/dL (74-106); Potassium 4.4 mmol/L (3.5-5.1); Sodium 140 mmol/L (136-145)
[2024-08-24 07:58] LABS: Bilirubin, Total 0.8 mg/dL (0.2-1.0)
[2024-08-24 07:59] LABS: Chloride 108 mmol/L (98-107)
[2024-08-24 08:00] VITALS: PULSE 101; RESP 18; O2SAT 97
--- NOTE | 2024-08-24 08:30 | DVHPN2 ---
Subjective Almost no chest pain this morning Reviewed: Care Plan, H&P, Labs, Medications, Previous Orders, Radiology, Other (Consultation) Changes from previous H/P or p: Changes Objective Vitals Vital Signs Date Time Temp Pulse Resp B/P (MAP) Pulse Ox O2 Delivery O2 Flow Rate FiO2 08/24/24 05:00 97.6 76 17 113/72 (86) 97 97.6 08/23/24 20:00 Nasal Cannula* 2 28 Intake/Output Intake and Output 08/24/24 07:00 Intake Total 1175 ml Output Total 1360 ml Balance -185 ml Intake Oral 1125 ml IV Total 50 ml Output Urine Total 1360 ml General Appearance: Alert, Oriented X3, Cooperative, No acute distress HEENT: Atraumatic Lungs: Clear to auscultation, Normal air movement Cardiovascular: Regular rate, Normal S1, Normal S2, No murmurs Abdomen: Normal bowel sounds, Soft, No tenderness Neuro: Normal speech, Cranial nerves 3-12 NL Psych/Mental Status: Mental status NL, Mood NL Medications Current Medications Medications Dose Ordered Sig/Adan Route Start Time Stop Time Status Last Admin Dose Admin Sodium Chloride 10 ml Q8HR IV 08/20/24 22:00 08/24/24 05:27 10 ML Docusate Sodium 100 mg BIDPRN PRN PO 08/20/24 21:30 Acetaminophen 650 mg Q6HP PRN PO 08/20/24 21:30 Acetaminophen/ Hydrocodone Bitart 1 tab Q4HP PRN PO 08/20/24 21:30 08/23/24 10:56 1 TAB Ondansetron HCl 4 mg Q4HP PRN IV 08/20/24 21:30 Enoxaparin Sodium 40 mg DAILY SC 08/21/24 10:00 08/23/24 10:38 40 MG Nitroglycerin 0.4 mg Q5MINP PRN SL 08/20/24 21:30 08/21/24 07:41 0.4 MG Morphine Sulfate 2 mg Q30M PRN IV 08/20/24 21:30 08/21/24 11:01 2 MG Ceftriaxone Sodium 50 ml @ 100 mls/hr DAILY IV 08/21/24 10:00 08/23/24 10:37 100 MLS/HR Baclofen 10 mg BID PO 08/20/24 22:00 08/23/24 21:34 10 MG Colchicine 0.6 mg DAILY PO 08/22/24 10:00 08/23/24 10:37 0.6 MG Ibuprofen 600 mg TID PO 08/21/24 22:00 08/24/24 05:24 600 MG Pantoprazole Sodium 40 mg DAILY@0600 PO 08/22/24 06:00 08/24/24 05:24 40 MG Laboratory Results Laboratory Tests 08/23/24 05:45 08/24/24 06:55 Chemistry Test 08/24/24 06:55 Albumin 4.6 g/dL (3.2-4.8) Calcium Level 10.1 mg/dL (8.7-10.4) Total Protein 7.0 g/dL (5.7-8.2) LFT Test 08/24/24 06:55 Alanine Aminotransferase (ALT) 33 U/L (7-40) Alkaline Phosphatase 62 U/L (46-116) Aspartate Amino Transferase (AST) 18 U/L (13-40) Total Bilirubin 0.8 mg/dL (0.2-1.0) Urinalysis Test 08/20/24 18:09 Urine Color Yellow (Yellow) Urine Clarity Clear (Clear) Urine pH 6.5 (5.0-9.0) Urine Specific [place] 1.027 (1.001-1.035) Urine Protein Trace (Negative) H Urine Ketones Negative (Negative) Urine Blood Negative /uL (Negative) Urine Nitrite Negative (Negative) Urine Bilirubin Negative (Negative) Urine Urobilinogen Normal mg/dL (Negative) Urine Leukocyte Esterase 1+ /uL (Negative) Urine RBC 3 /hpf (0 - 3) Urine Microscopic WBC 21 /HPF (0-3) H Urine Squamous Epithelial Cells Few /hpf (<5) Urine Bacteria None seen /hpf (None Seen) Urine Mucus Few (None Seen) Urine Glucose Normal mg/dL (Normal) Microbiology Microbiology Date/Time Source Procedure Growth Status 08/20/24 18:21 Blood Blood Culture - Preliminary NO GROWTH AFTER 72 HOURS OF INCUBATION. Resulted 08/20/24 18:09 Voided Urine Urine Culture - Final Complete Labs and/or images reviewed: Labs reviewed by me, Image(s) reviewed by me Assessment/Plan Assessment/Plan A 43-year-old male patient; with past medical history of obstructive sleep apnea on CPAP; ex-smoker; who presented to emergency department with chest pain. Chest pain; ACS ruled out; most likely due to pericarditis Acute hypoxic respiratory failure; unclear etiology; PE was ruled out by chest angiogram and normal D-dimer; resolved saturating well on room air Obstructive sleep apnea on CPAP Sepsis with leukocytosis and fever due to suspected pericarditis/suspected UTI JOEL; most likely vasomotor nephropathy in the setting of sepsis; resolving Right renal cyst; no active issues Ex-smoker Obesity Reviewed lab work including urinalysis Reviewed cultures Reviewed the imaging studies including chest angiogram and renal ultrasound IV antibiotics as inpatient; no antibiotics as outpatient Weaned off oxygen therapy Avoid nephrotoxic agents Cardiology is following: Most likely pericarditis; discharged on colchicine for three more days and ibuprofen as needed along with pantoprazole Continue pain management as indicated Reviewed echocardiogram Reviewed EKGs and troponin levels To follow up with the primary care provider or discharge clinic within a week To follow up with Cardiology within two weeks August 21, 2024 Echocardiogram: MILD LVH AND MILD LV DIASTOLIC DYSFUNCTION LV EF IS 65% MODERATELY DILATED RV NORMAL VALVES NO EFFUSION Late Entry. This medical document was created using an electronic medical record system with computerized dictation system. Although this document has been carefully reviewed, there might still be some phonetic and typographical errors. These areas are purely typographical due to imperfections of the software programs, and do not reflect any compromise in the patient's medical care. Plan discussed with: Patient, Other (Nurse) My Orders Orders - ROBERT LUCERO MD Procedure Category Date Status Time Communication Order ORDERS 08/23/24 Transmitted 15:04 Date of Service: Aug 24, 2024 Billing Provider: ROBERT LUCERO MD Common Visit Codes: [id number] INP/OBS CARE(MOD) ROBERT LUCERO MD Aug 24, 2024 08:30
[2024-08-24 09:00] VITALS: BP 108/71; PULSE 78; RESP 16; TEMP 97.9; O2SAT 96
[2024-08-24] MEDS ORDERED: PANT40T PO (10:35)
[2024-08-24] MEDS ORDERED: COLC1CAP PO (10:35)
[2024-08-24] MEDS ORDERED: IBU600T PO (10:35)
--- NOTE | 2024-08-24 10:39 | DVHDS2 ---
Discharge Summary Date of Admission Aug 20, 2024 at 21:18 Date of Discharge: Aug 24, 2024 Admitting Diagnosis Chest pain Labs/Diagnostic Data: Laboratory Results Test 08/24/24 06:55 08/23/24 05:45 08/22/24 13:39 08/21/24 10:20 Sodium Level 140 mmol/L (136-145) Potassium Level 4.4 mmol/L (3.5-5.1) Chloride Level 108 mmol/L (98-107) Carbon Dioxide Level 22 mmol/L (20-31) Anion Gap 10 (5-15) Blood Urea Nitrogen 15 mg/dL (9-23) Creatinine 1.27 mg/dL (0.700-1.30) Glomerular Filtration Rate Calc 73 mL/min (>90) BUN/Creatinine Ratio 11.8 (10.0-20.0) Serum Glucose 94 mg/dL (74-106) Calcium Level 10.1 mg/dL (8.7-10.4) Total Bilirubin 0.8 mg/dL (0.2-1.0) Aspartate Amino Transferase (AST) 18 U/L (13-40) Alanine Aminotransferase (ALT) 33 U/L (7-40) Alkaline Phosphatase 62 U/L (46-116) Total Protein 7.0 g/dL (5.7-8.2) Albumin 4.6 g/dL (3.2-4.8) White Blood Count 8.5 10^3/uL (4.4-10.8) Red Blood Count 4.92 10^6/uL (4.5-5.90) Hemoglobin 15.8 g/dL (13.5-17.5) Hematocrit 45.4 % (41.0-53.0) Mean Corpuscular Volume 92.2 fL (80.0-100.0) Mean Corpuscular Hemoglobin 32.1 pg (28.0-32.0) Mean Corpuscular Hemoglobin Concent 34.8 g/dL (32.0-36.0) Red Cell Distribution Width 12.7 % (11.8-14.3) Platelet Count 189 10^3/uL (140-450) Mean Platelet Volume 7.8 fL (6.9-10.8) Neutrophils (%) (Auto) 56.0 % (37.0-80.0) Lymphocytes (%) (Auto) 30.5 % (10.0-50.0) Monocytes (%) (Auto) 8.4 % (0.0-12.0) Eosinophils (%) (Auto) 4.7 % (0.0-7.0) Basophils (%) (Auto) 0.4 % (0.0-2.0) Neutrophils # (Auto) 4.8 10 ^3/uL (1.6-8.6) Lymphocytes # (Auto) 2.6 10 ^3/uL (0.4-5.4) Monocytes # (Auto) 0.7 10 ^3/uL (0-1.3) Eosinophils # (Auto) 0.4 10 ^3/uL (0-0.8) Basophils # (Auto) 0 10 ^3/uL (0-0.2) Nucleated Red Blood Cells 0.1 % Troponin I High Sensitivity < 3 ng/L (</=54) Hemoglobin A1c 4.9 % A1C (<5.7) Magnesium Level 2.2 mg/dL (1.6-2.6) Triglycerides Level 146 mg/dL (< 150) Cholesterol Level 136 mg/dL (< 200) LDL Cholesterol 79 mg/dL (< 100) HDL Cholesterol 30 mg/dL (40-59) Thyroid Stimulating Hormone (TSH) 2.22 uIU/mL (0.55-4.78) Test 08/20/24 18:09 08/20/24 17:15 Urine Color Yellow (Yellow) Urine Clarity Clear (Clear) Urine pH 6.5 (5.0-9.0) Urine Specific [place] 1.027 (1.001-1.035) Urine Protein Trace (Negative) Urine Ketones Negative (Negative) Urine Blood Negative /uL (Negative) Urine Nitrite Negative (Negative) Urine Bilirubin Negative (Negative) Urine Urobilinogen Normal mg/dL (Negative) Urine Leukocyte Esterase 1+ /uL (Negative) Urine RBC 3 /hpf (0 - 3) Urine Microscopic WBC 21 /HPF (0-3) Urine Squamous Epithelial Cells Few /hpf (<5) Urine Bacteria None seen /hpf (None Seen) Urine Mucus Few (None Seen) Urine Glucose Normal mg/dL (Normal) Urine Opiates Screen Neg (NEGATIVE) Urine Fentanyl Screen Neg (NEGATIVE) Urine Barbiturates Screen Neg (NEGATIVE) Urine Phencyclidine Screen Neg (NEGATIVE) Urine Amphetamines Screen Neg (NEGATIVE) Urine Benzodiazepines Screen Neg (NEGATIVE) Urine Cocaine Screen Neg (NEGATIVE) Urine Cannabinoids Screen Neg (NEGATIVE) Erythrocyte Sedimentation Rate 1 mm/hr (0-20) D-Dimer, Quantitative 0.24 mg/L FEU (0.0-0.49) Lactic Acid Level 1.6 mmol/L (0.4-2.0) C-Reactive Protein High Sensitivity 0.25 mg/dL (<1.0) B-Type Natriuretic Peptide 2.17 pg/mL (0-100) Other Laboratory Tests 08/24/24 06:55 08/23/24 05:45 Brief Hx & Hospital Course: A 43-year-old male patient; with past medical history of obstructive sleep apnea on CPAP; ex-smoker; who presented to emergency department with chest pain. Details as below: Chest pain; ACS ruled out; most likely due to pericarditis Acute hypoxic respiratory failure; unclear etiology; PE was ruled out by chest angiogram and normal D-dimer; resolved saturating well on room air Obstructive sleep apnea on CPAP Sepsis with leukocytosis and fever due to suspected pericarditis/suspected UTI JOEL; most likely vasomotor nephropathy in the setting of sepsis; resolving Right renal cyst; no active issues Ex-smoker Obesity Reviewed lab work including urinalysis Reviewed cultures Reviewed the imaging studies including chest angiogram and renal ultrasound IV antibiotics as inpatient; no antibiotics as outpatient Weaned off oxygen therapy Avoid nephrotoxic agents Cardiology is following: Most likely pericarditis; discharged on colchicine for three more days and ibuprofen as needed along with pantoprazole Continue pain management as indicated Reviewed echocardiogram Reviewed EKGs and troponin levels To follow up with the primary care provider or discharge clinic within a week To follow up with Cardiology within two weeks August 21, 2024 Echocardiogram: MILD LVH AND MILD LV DIASTOLIC DYSFUNCTION LV EF IS 65% MODERATELY DILATED RV NORMAL VALVES NO EFFUSION Late Entry. This medical document was created using an electronic medical record system with computerized dictation system. Although this document has been carefully reviewed, there might still be some phonetic and typographical errors. These areas are purely typographical due to imperfections of the software programs, and do not reflect any compromise in the patient's medical care. Consults/Reason for consult Cardiology for chest pain Condition at Discharge: Stable Final Diagnosis/Problems List Chest pain; ACS ruled out; most likely due to pericarditis Rest as above Discharge Disposition: Home Discharge Instruct/Medications Diet: Regular Activity: No Restrictions, As Tolerated Follow Up/Referral: To follow up with PCP within 1 week//To follow up with cardiology with 2 weeks Medications: Colchicine 0.6 mg for 3 days; Ibuprofen 600mg TID as needed; Pantoprazole 40 mg daily Discharge Statement: "Patient was advised to return to the ER or call 911 if any headaches, dizziness, shortness of breath, chest pain, abdominal pain, bleeding, fevers, or worsening of medical condition. Patient was counseled about treatment plan, medications, possible side effects, patientverbalized understanding. All questions were answered to the best of my ability. This discharge took greater then 30 minutes in planning, reviewing documentation, counseling the patient, and discussing with other team members." ASSESSMENT ASSESSMENT Assessment Date of Service: Aug 24, 2024 Billing Provider: ROBERT LUCERO MD Common Visit Codes: 17856-ORK/OBS DISCH DAY >30min ROBERT LUCERO MD Aug 24, 2024 10:39
[2024-08-24 11:48] VITALS: BP 108/72; PULSE 78; RESP 18; TEMP 36.6; O2SAT 96
[2024-08-24 13:00] VITALS: BP 114/65; PULSE 86; RESP 16; TEMP 97.6; O2SAT 99
--- NOTE | 2024-08-24 23:13 | DVHPN2 ---
Progress Note - Dictate Date Seen: Aug 24, 2024 Medical Necessity Reason Pt with a Central, PICC or Fol: No Subjective Patient was seen and evaluated in follow up. Patient has no new complaints at this time. Patient denies any cardiac symptoms. Patient is cardiac stable for discharge. Telemetry reviewed. vital signs Vital Sign Date Time Temp Pulse Resp B/P (MAP) Pulse Ox O2 Delivery O2 Flow Rate FiO2 08/24/24 13:00 97.6 86 16 114/65 (81) 99 97.6 08/24/24 08:00 Room Air* 0 21 Total Intake and Output 08/23/24 08/23/24 08/24/24 15:00 23:00 07:00 Intake Total 50 ml 800 ml 325 ml Output Total 600 ml 760 ml Balance 50 ml 200 ml -435 ml medications Current Medications Medications Dose Ordered Sig/Adan Route Start Time Stop Time Status Last Admin Dose Admin Sodium Chloride 10 ml Q8HR IV 08/20/24 22:00 08/24/24 05:27 10 ML Docusate Sodium 100 mg BIDPRN PRN PO 08/20/24 21:30 Acetaminophen 650 mg Q6HP PRN PO 08/20/24 21:30 Acetaminophen/ Hydrocodone Bitart 1 tab Q4HP PRN PO 08/20/24 21:30 08/23/24 10:56 1 TAB Ondansetron HCl 4 mg Q4HP PRN IV 08/20/24 21:30 Enoxaparin Sodium 40 mg DAILY SC 08/21/24 10:00 08/23/24 10:38 40 MG Nitroglycerin 0.4 mg Q5MINP PRN SL 08/20/24 21:30 08/21/24 07:41 0.4 MG Morphine Sulfate 2 mg Q30M PRN IV 08/20/24 21:30 08/21/24 11:01 2 MG Ceftriaxone Sodium 50 ml @ 100 mls/hr DAILY IV 08/21/24 10:00 08/24/24 09:48 100 MLS/HR Baclofen 10 mg BID PO 08/20/24 22:00 08/24/24 09:48 10 MG Colchicine 0.6 mg DAILY PO 08/22/24 10:00 08/24/24 09:48 0.6 MG Ibuprofen 600 mg TID PO 08/21/24 22:00 4/30/25 05:24 600 MG Pantoprazole Sodium 40 mg DAILY@0600 PO 08/22/24 06:00 08/24/24 05:24 40 MG objective GENERAL: Alert and oriented x 3. No acute distress. Obese. EYES: PERRL, EOMI. Anicteric. HENT: Moist mucous membranes. LUNGS: Clear to auscultation bilaterally. CARDIOVASCULAR: Regular rate and rhythm. ABDOMEN: Soft, nontender and nondistended. EXTREMITIES: No edema. NEUROLOGIC: No focal neurological deficits. SKIN: Warm, dry. laboratory and microbiology Laboratory Tests 08/24/24 06:55 08/23/24 05:45 Test 08/24/24 06:55 Range/Units Serum Glucose 94 74-106 mg/dL Problem List Chest pain, rule out coronary ischemia. ?Pericarditis. Rule out structural heart disease. Obstructive sleep apnea with CPAP use. History of pneumonia. Acute kidney injury. GERD. History of tobacco use. Obesity. Assessment/Plan Continued all current supportive medical care. Morphine and [place] for pain management. IV antibiotics as ordered. DVT and GI prophylactics. Nitro SL. Additional plan as per the hospital course. Dietary Evaluation Review Comments: 1) Refer to CDE on DC for weight management 2) Continue current POC Expected Outcomes/Goals: To meet >75% estimated needs Fu 3-5 days Plan discussed with: Patient JACQUIE SORTO MD Aug 24, 2024 13:27
== END 2024-08-24 14:42 | disposition home or self-care (01) | DRG 871 ==
LOC: ER 17:02 → OVERFLOW 21:18 → WEST WING 22:30 → TELE-WESTW 08-22 20:52
PROVIDERS: ADMIT Internal Medicine; ATTEND Internal Medicine
DX: A41.9 Sepsis, unspecified organism (principal); J96.01 Acute respiratory failure with hypoxia; N17.0 Acute kidney failure with tubular necrosis; I31.9 Disease of pericardium, unspecified; N39.0 Urinary tract infection, site not specified; E66.9 Obesity, unspecified; Z68.30 Body mass index [BMI] 30.0-30.9, adult; I11.9 Hypertensive heart disease without heart failure; G47.33 Obstructive sleep apnea (adult) (pediatric); K21.9 Gastro-esophageal reflux disease without esophagitis; D72.829 Elevated white blood cell count, unspecified; F41.9 Anxiety disorder, unspecified; N28.1 Cyst of kidney, acquired; Z87.891 Personal history of nicotine dependence; Z87.01 Personal history of pneumonia (recurrent)
CPT/HCPCS: 36415; 71045; 71275; 76775; 78452; 80048; 80053; 80061; 80307; 81001; 83036; 83605; 83735; 83880; 84443; 84484; 85025; 85379; 85652; 86141; 87040; 87086; 93005; 93017; 93306; 96361; 96365; G0378; J1885